=== PATIENT | female | born 1980 | race Two or more races ===

== ENCOUNTER 2021-02-06 16:19 | Outpatient (REF) | payer OTHER, SELFPAY ==
--- NOTE | ~2021-02-06 | XR_ITS ---
EXAMINATION: XR SHOULDER, RIGHT CLINICAL INFORMATION: Osteoarthritis. COMPARISON: None TECHNIQUE: AP external rotation, Grashey, scapular Y, and axillary views of the right shoulder. FINDINGS: No acute fracture or dislocation. No significant joint space narrowing or marginal osteophytes. No osseous erosion. Tiny lateral subacromial spur. XR/XR shoulder RT min 2V IMPRESSION: Tiny lateral subacromial spur.
[2021-02-06 17:04] LABS: MANUAL DIFF FLAG NO
[2021-02-06 17:09] LABS: Basophils Absolute Auto 0.1 X10*3/uL (0.0-0.2); Basophils Percent Auto 0.7 % (0-2); Eosinophils Absolute Auto 0.1 X10*3/uL (0.0-0.4); Eosinophils Percent Auto 1.6 % (0-4); Hematocrit 31.9 % (37-47); Hemoglobin 9.5 g/dl (12.0-16.0); Imm Gran Abs Auto 0.02 X10*3/uL (0.00-0.03); Imm Gran Pct Auto 0.3 % (0.0-0.4); Lymphocytes Absolute Auto 2.4 X10*3/uL (1.2-4.9); Mean Corpuscular HGB Conc 29.8 g/dl (31.0-35.0); Mean Corpuscular Volume 70.4 fL (80-98); Mean Platelet Volume 10.1 fL (9.4-12.3); Monocytes Absolute Auto 0.5 X10*3/uL (0.1-1.2); Monocytes Percent Auto 7.8 % (2-11); Neutrophils Absolute Auto 3.9 X10*3/uL (2.0-8.3); Neutrophils Percent Auto 55.6 % (45-73); Platelet Count 370 X10*3/uL (160-400); Red Blood Count 4.53 X10*6/uL (4.20-5.50); Red Cell Distribution Width 15.9 % (11.0-16.0)
[2021-02-06 17:30] LABS: Alanine Aminotransferase 30 U/L (0-31); Albumin Level 4.4 g/dL (3.5-5.0); Alkaline Phosphatase 83 U/L (39-117); Anion Gap 12 (12-20); Aspartate Amino Transferase 23 U/L (5-31); Bilirubin Total 0.2 mg/dL (0.0-1.0); Blood Urea Nitrogen 8 mg/dL (9-16); Calcium 9.1 mg/dL (8.4-10.2); Carbon Dioxide 25 mmol/L (22-29); Chloride 105 mmol/L (96-108); Estimated Glomerular Filt Rate > 60; Glucose Random 75 mg/dL (60-115); Sodium 138 mmol/L (135-145)
[2021-02-06 17:50] LABS: Free T4 (Free Thyroxine) 0.91 ng/dL (0.71-1.85); Thyroid Stimulating Hormone 3.68 uIU/mL (0.32-4.0)
[2021-02-07 09:07] LABS: Thyroid Peroxidase Antibodies >900 IU/mL (<9)
== END 2021-02-06 16:20 | disposition home or self-care (01) ==
LOC: HO.LAB 16:19
PROVIDERS: PCP Internal Medicine; Visit Provider Internal Medicine
DX: E06.9 Thyroiditis, unspecified (principal); R63.5 Abnormal weight gain; M25.511 Pain in right shoulder
CPT/HCPCS: 36415; 73030; 80053; 84439; 84443; 85025; 86376

== ENCOUNTER 2021-02-14 12:24 | Outpatient (REF) | payer OTHER, SELFPAY ==
--- NOTE | ~2021-02-14 | US_ITS ---
EXAMINATION: US THYROID CLINICAL INFORMATION: Thyroiditis, thyromegaly. COMPARISON: Ultrasound soft tissue head/neck thyroid dated 11/25/2018 TECHNIQUE: Linear transducer medellin-scale and color Doppler examination with attention to the region of the thyroid. FINDINGS: SIZE: Measurements of the thyroid lobes and nodules are given in sagittal, anteroposterior and transverse dimensions respectively. Right Thyroid Lobe: 6.89 x 2.48 x 2.02 cm, volume 18.0 mL. Previously 5.6 x 2.9 x 2.0 cm, volume 16.4 mL. Parenchyma: The gland echotexture is heterogeneous. Thyroid vascularity is increased. Left Thyroid Lobe: 4.45 x 1.25 x 1.34 cm, volume 3.89 mL. Previously 1.2 x 1.3 x 4.5 cm, volume 3.4 mL. Parenchyma: The gland echotexture is heterogeneous. Thyroid vascularity is increased. Isthmus: 1.1 cm in maximum AP dimension. Previously 1.2 cm. No focal thyroid nodule is seen. NODES: No lymphadenopathy is seen in the tissue surrounding the thyroid gland. There there is a 1.5 x 0.90 x 0.80 cm hypoechoic area adjacent to the right thyroid lobe and 0.80 x 0.56 x 0.55 cm heterogeneous lesion adjacent to the left thyroid lobe, question small parathyroid adenomas versus lymph nodes. US/US thyroid IMPRESSION: Heterogenous enlarged right thyroid lobe. The left thyroid lobe is heterogenous but normal size. Nodules adjacent to the right and left thyroid lobe are likely parathyroid lesions or small lymph nodes. ACR TI-RADS RECOMMENDATION REFERENCE: Ultrasound-guided fine-needle aspiration, followup ultrasound, no further followup. * TR1 (0 point) and TR 2 (2 points): No FNA or follow up. * TR3 (3 points): FNA if more than or equal to 2.5 cm in maximum dimension, followup ultrasound in 1, 3 and 5 years if 1.5 to 2.4 cm in maximum dimension. * TR4 (4-6 points): FNA if more than or equal to 1.5 cm in maximum dimension, followup ultrasound in 1, 2, 3 and 5 years if 1 to 1.4 cm in maximum dimension. * TR5 (more than or equal to 7 points): FNA if more than or equal to 1 cm in maximum dimension, followup ultrasound every year for 5 years if 0.5 to 0.9 cm in maximum dimension. * TR3, TR4 or TR5 nodules that are below the size threshold for followup receive no followup.
== END 2021-02-14 12:25 | disposition home or self-care (01) ==
LOC: HO.US 12:24
PROVIDERS: Visit Provider Internal Medicine
DX: E07.9 Disorder of thyroid, unspecified (principal)
CPT/HCPCS: 76536

== ENCOUNTER 2021-02-25 08:00 | Outpatient (REF) | payer OTHER, SELFPAY | END 2021-02-25 08:01 | disposition home or self-care (01) | LOC: HO.HOSX 08:00 | PROVIDERS: Visit Provider Physician Assistant | DX: M54.12 Radiculopathy, cervical region (principal) | CPT/HCPCS: 99202 ==

== ENCOUNTER 2021-03-20 15:07 | Outpatient (REF) | payer OTHER, SELFPAY ==
--- NOTE | ~2021-03-20 | XR_ITS ---
EXAMINATION: RIGHT SHOULDER, CERVICAL SPINE, AND LUMBAR SPINE. CLINICAL INFORMATION: Pain COMPARISON: 02/06/2021 TECHNIQUE: 4 view right shoulder, 3 view lumbar spine, and 4 view cervical spine. FINDINGS: Views of the right shoulder do not demonstrate any evidence of acute fracture or dislocation. No calcific tendinitis. No significant degenerative change of the acromioclavicular joint. Glenohumeral joint unremarkable. Small acromial spur is present. Views of the cervical spine do not demonstrate any evidence of abnormal prevertebral soft tissue swelling. Disc spaces are maintained with minimal narrowing of the C5-6 disc space. The bony texture and alignment of the lumbar spine is satisfactory. There are 5 nonrib bearing lumbar vertebra. No acute fracture, spondylolisthesis, spondylolysis is appreciated. Sacroiliac joints unremarkable. Pedicles intact. XR/XR lumbar spine 2-3V IMPRESSION: No significant bony abnormality of the right shoulder, cervical spine, or lumbar spine identified.
--- NOTE | ~2021-03-20 | XR_ITS ---
EXAMINATION: RIGHT SHOULDER, CERVICAL SPINE, AND LUMBAR SPINE. CLINICAL INFORMATION: Pain COMPARISON: 02/06/2021 TECHNIQUE: 4 view right shoulder, 3 view lumbar spine, and 4 view cervical spine. FINDINGS: Views of the right shoulder do not demonstrate any evidence of acute fracture or dislocation. No calcific tendinitis. No significant degenerative change of the acromioclavicular joint. Glenohumeral joint unremarkable. Small acromial spur is present. Views of the cervical spine do not demonstrate any evidence of abnormal prevertebral soft tissue swelling. Disc spaces are maintained with minimal narrowing of the C5-6 disc space. The bony texture and alignment of the lumbar spine is satisfactory. There are 5 nonrib bearing lumbar vertebra. No acute fracture, spondylolisthesis, spondylolysis is appreciated. Sacroiliac joints unremarkable. Pedicles intact. XR/XR shoulder RT min 2V IMPRESSION: No significant bony abnormality of the right shoulder, cervical spine, or lumbar spine identified.
--- NOTE | ~2021-03-20 | XR_ITS ---
EXAMINATION: RIGHT SHOULDER, CERVICAL SPINE, AND LUMBAR SPINE. CLINICAL INFORMATION: Pain COMPARISON: 02/06/2021 TECHNIQUE: 4 view right shoulder, 3 view lumbar spine, and 4 view cervical spine. FINDINGS: Views of the right shoulder do not demonstrate any evidence of acute fracture or dislocation. No calcific tendinitis. No significant degenerative change of the acromioclavicular joint. Glenohumeral joint unremarkable. Small acromial spur is present. Views of the cervical spine do not demonstrate any evidence of abnormal prevertebral soft tissue swelling. Disc spaces are maintained with minimal narrowing of the C5-6 disc space. The bony texture and alignment of the lumbar spine is satisfactory. There are 5 nonrib bearing lumbar vertebra. No acute fracture, spondylolisthesis, spondylolysis is appreciated. Sacroiliac joints unremarkable. Pedicles intact. XR/XR cervical spine 3V IMPRESSION: No significant bony abnormality of the right shoulder, cervical spine, or lumbar spine identified.
== END 2021-03-20 15:08 | disposition home or self-care (01) ==
LOC: HO.XRAY 15:07
PROVIDERS: Absent Provider Physician Assistant; PCP Internal Medicine; Visit Provider Nurse Practitioner Family
DX: M47.816 Spondylosis without myelopathy or radiculopathy, lumbar region (principal); M54.12 Radiculopathy, cervical region; M79.18 Myalgia, other site; M54.2 Cervicalgia; M25.511 Pain in right shoulder
CPT/HCPCS: 72040; 72100; 73030; 99202

== ENCOUNTER → 2021-04-26 12:22 | Outpatient (BNVA) | payer OTHER, SELFPAY | PROVIDERS: PCP Physician Assistant; Visit Provider Nurse Practitioner Gerontology | DX: E06.3 Autoimmune thyroiditis (principal); E55.9 Vitamin D deficiency, unspecified; E04.9 Nontoxic goiter, unspecified | CPT/HCPCS: 99212 ==

== ENCOUNTER → 2021-05-01 10:55 | Outpatient (BNVA) | payer OTHER, SELFPAY | PROVIDERS: PCP Physician Assistant; Visit Provider Nurse Practitioner Family ==

== ENCOUNTER 2021-05-08 13:30 | Outpatient (REF) | payer OTHER, SELFPAY ==
[2021-05-08 15:26] LABS: Albumin Level 4.2 g/dL (3.5-5.0); Calcium 9.1 mg/dL (8.4-10.2); Phosphorus 3.7 mg/dL (2.7-4.5)
[2021-05-08 15:37] LABS: Vitamin D 25-OH Total 17.4 ng/mL (>30)
[2021-05-08 15:41] LABS: Vitamin D 25-OH Total 16.8 ng/mL (>30)
[2021-05-09 15:36] LABS: Calcium (PTHI) 9.1 mg/dL (8.6-10.2); PTHI 54 pg/mL (14-64)
== END 2021-05-08 13:31 | disposition home or self-care (01) ==
LOC: HO.LAB 13:30
PROVIDERS: Nurse Practitioner Gerontology; PCP Internal Medicine; Visit Provider Internal Medicine
DX: E55.9 Vitamin D deficiency, unspecified (principal)
CPT/HCPCS: 36415; 82040; 82306; 82310; 82330; 83970; 84100

== ENCOUNTER 2021-05-21 15:11 | Outpatient (REF) | payer OTHER, SELFPAY | END 2021-05-21 15:12 | disposition home or self-care (01) | LOC: HO.MRI 15:11 | PROVIDERS: PCP Internal Medicine; Visit Provider Nurse Practitioner Family | DX: Z13.89 Encounter for screening for other disorder (principal) ==

== ENCOUNTER 2021-06-26 14:24 | Outpatient (REF) | payer OTHER, SELFPAY ==
--- NOTE | ~2021-06-26 | US_ITS ---
EXAMINATION: US SOFT TISSUE NECK CLINICAL INFORMATION: Nontoxic goiter COMPARISON: Previous thyroid ultrasound January 2021 TECHNIQUE: Ultrasound of the neck soft tissues is performed with high- frequency medellin-scale imaging and color Doppler. FINDINGS: RIGHT NECK SOFT TISSUES: Scattered architecturally normal nodes are present. 5 right cervical lymph nodes are seen. The nodes show normal fatty hilus, normal cortical thickness, and no calcification. There is question of mild cystic change of the largest level 4 lymph node. Lymph nodes are otherwise normal in architecture. No abnormal color flow. The largest nodes are as follows: Level 1B: 1.1 x 0.8 x 0.9 cm. Normal joe architecture. Level 4: 1.1 x 0.6 x 0.6 cm. question mild cystic change LEFT NECK SOFT TISSUES: Scattered architecturally normal nodes are present. 5 left cervical lymph nodes are seen. The nodes show normal fatty hilus, normal cortical thickness, and no cystic change or calcification. No abnormal color flow. The largest nodes are as follows: Level 2: 2.3 x 0.9 x 0.8 cm. Normal joe architecture. Level 3: 1.2 x 0.4 x 0.4 cm. Normal joe architecture. US/US soft tiss head and/or neck IMPRESSION: Bilateral cervical lymphadenopathy. There is question of mild cystic change of the right level 4 lymph node. Lymph nodes otherwise demonstrate normal architecture.
--- NOTE | ~2021-06-26 | MR_ITS ---
EXAMINATION: MR CERVICAL SPINE WITHOUT CONTRAST CLINICAL INFORMATION: Cervical radiculopathy. Right arm pain for one month. Bilateral arm pain and weakness. Finger numbness or weakness. COMPARISON: Cervical spine radiographs dated 03/20/2021. TECHNIQUE: MRI of the cervical spine was obtained using routine sequences without contrast. FINDINGS: VERTEBRAL BODIES AND PARASPINAL SOFT TISSUES: Straightening of the normal cervical lordosis, which may be positional or related to muscular spasm. No acute fracture or subluxation. No loss of vertebral body height. Loss of intervertebral disc height at C5-C6. No abnormal marrow signal to suggest acute osseous injury. No abnormal signal within the visualized cord. The paraspinal soft tissues are unremarkable. CERVICOMEDULLARY JUNCTION AND VISUALIZED POSTERIOR FOSSA: Unremarkable. SPINAL LEVELS: C2-C3: No significant disc bulge. No central canal or neural foraminal stenosis. C3-C4: No significant disc bulge. No central canal or neural foraminal stenosis. C4-C5: No significant disc bulge. Right-sided uncinate spurring with mild right neural foraminal stenosis. C5-C6: Broad-based disc osteophyte complex with a right posterior paracentral disc protrusion and annular fissuring. Complete effacement of the ventral thecal sac with indentation of the adjacent cord. Bilateral uncinate spurring and facet arthropathy with moderate right and mild left neural foraminal stenosis. C6-C7: No significant disc bulge. No central canal or neural foraminal stenosis. C7-T1: No significant disc bulge. No central canal or neural foraminal stenosis. MR/MR cervical spine wo con IMPRESSION: 1. Degenerative disease at C5-C6 with a broad-based disc osteophyte complex and superimposed right paracentral disc protrusion with annular fissuring. This completely effaces the ventral thecal sac and indents the adjacent cord. Bilateral uncinate spurring and facet arthropathy causing moderate right and mild left neural foraminal stenosis. 2. Right-sided uncinate spurring at C4-C5 with mild right neural foraminal stenosis. 3. Straightening of the normal cervical lordosis, which may be positional or related to muscular spasm.
== END 2021-06-26 14:25 | disposition home or self-care (01) ==
LOC: HO.US 14:24
PROVIDERS: PCP Internal Medicine; Visit Provider Nurse Practitioner Family
DX: M54.12 Radiculopathy, cervical region (principal); E04.9 Nontoxic goiter, unspecified; R59.1 Generalized enlarged lymph nodes
CPT/HCPCS: 72141; 76536

== ENCOUNTER 2021-10-31 13:47 | Outpatient (REF) | payer OTHER, SELFPAY ==
[2021-10-31 16:01] LABS: Free T4 (Free Thyroxine) 0.79 ng/dL (0.71-1.85); Thyroid Stimulating Hormone 2.95 uIU/mL (0.32-4.0)
[2021-11-02 07:06] LABS: Thyroglobulin Antibodies 1 IU/mL (< or = 1); Thyroid Peroxidase Antibodies >900 IU/mL (<9)
== END 2021-10-31 13:48 | disposition home or self-care (01) ==
LOC: HO.LAB 13:47
PROVIDERS: PCP Internal Medicine; Visit Provider Internal Medicine
DX: E06.3 Autoimmune thyroiditis (principal); E55.9 Vitamin D deficiency, unspecified; R59.0 Localized enlarged lymph nodes
CPT/HCPCS: 36415; 82306; 84439; 84443; 86376; 86800; 99212

== ENCOUNTER → 2022-01-16 08:40 | Outpatient (BNVA) | payer OTHER, SELFPAY | PROVIDERS: PCP Internal Medicine; Visit Provider Internal Medicine | DX: E06.3 Autoimmune thyroiditis (principal) ==

== ENCOUNTER 2022-10-14 15:56 | Outpatient (REF) | payer OTHER, SELFPAY ==
--- NOTE | ~2022-10-14 | XR_ITS ---
EXAMINATION: XR LUMBOSACRAL SPINE CLINICAL INFORMATION: Low back pain radiating to right leg COMPARISON: None TECHNIQUE: Three views of the lumbosacral spine. FINDINGS: The vertebral bodies and posterior elements are normal. The disc spaces are preserved and the vertebral alignment is normal. The paraspinal soft tissues are normal. XR/XR lumbar spine 2-3V IMPRESSION: Unremarkable lumbar spine exam..
[2022-10-14 16:15] LABS: MANUAL DIFF FLAG NO
[2022-10-14 16:24] LABS: Basophils Absolute Auto 0.1 X10*3/uL (0.0-0.2); Basophils Percent Auto 0.7 % (0-2); Eosinophils Absolute Auto 0.1 X10*3/uL (0.0-0.4); Eosinophils Percent Auto 1.6 % (0-4); Hemoglobin 11.4 g/dl (12.0-16.0); Imm Gran Abs Auto 0.04 X10*3/uL (0.00-0.03); Imm Gran Pct Auto 0.5 % (0.0-0.4); Lymphocytes Absolute Auto 1.9 X10*3/uL (1.2-4.9); Lymphocytes Percent Auto 23.2 % (20-40); Mean Corpuscular HGB Conc 30.8 g/dl (31.0-35.0); Mean Corpuscular Hemoglobin 22.1 pg (27.0-33.0); Mean Corpuscular Volume 71.6 fL (80.0-98.0); Mean Platelet Volume 10.7 fL (9.4-12.3); Monocytes Absolute Auto 0.5 X10*3/uL (0.1-1.2); Monocytes Percent Auto 6.2 % (2-11); Neutrophils Absolute Auto 5.6 x10*3/uL (2.0-8.3); Neutrophils Percent Auto 67.8 % (45-73); Platelet Count 360 X10*3/uL (160-400); Red Blood Count 5.17 X10*6/uL (4.20-5.50); Red Cell Distribution Width 15.2 % (11.0-16.0); White Blood Count 8.3 X10*3/uL (4.8-10.8)
[2022-10-14 17:06] LABS: Alanine Aminotransferase 12 U/L (0-31); Albumin Level 4.3 g/dL (3.5-5.0); Alkaline Phosphatase 103 U/L (39-117); Anion Gap 14 (12-20); Aspartate Amino Transferase 17 U/L (5-31); Bilirubin Total 0.4 mg/dL (0.0-1.0); Blood Urea Nitrogen 8 mg/dL (9-16); Calcium 9.3 mg/dL (8.4-10.2); Carbon Dioxide 23 mmol/L (22-29); Chloride 105 mmol/L (96-108); Cholesterol 250 mg/dL; Estimated Glomerular Filt Rate > 60; Glucose Random 91 mg/dL (60-115); Potassium 4.2 mmol/L (3.3-5.1); Sodium 138 mmol/L (135-145)
[2022-10-14 17:14] LABS: Free T4 (Free Thyroxine) 0.81 ng/dL (0.71-1.85); Thyroid Stimulating Hormone 4.28 uIU/mL (0.32-4.0); Vitamin D 25-OH Total 16.9 ng/mL (>30)
[2022-10-15 16:28] LABS: Triiodothyronine T3 Free 3.1 pg/mL (2.3-4.2)
[2022-10-15 17:08] LABS: Thyroid Peroxidase Antibodies >900 IU/mL (<9)
== END 2022-10-14 15:57 | disposition home or self-care (01) ==
LOC: HO.LAB 15:56
PROVIDERS: PCP Internal Medicine; Visit Provider Internal Medicine
DX: M54.50 Low back pain, unspecified (principal)
CPT/HCPCS: 36415; 72100; 80053; 82306; 82465; 84439; 84443; 84481; 85025; 86376

== ENCOUNTER 2022-11-03 15:19 | Outpatient (REF) | payer OTHER, SELFPAY ==
--- NOTE | ~2022-11-03 | US_ITS ---
EXAMINATION: US THYROID CLINICAL INFORMATION: Thyromegaly. Trent's thyroiditis. COMPARISON: Ultrasound soft tissue head/neck 06/26/2021. Thyroid ultrasound 02/14/2021 and 11/25/2018. TECHNIQUE: Linear transducer grayscale and color Doppler examination with attention to the region of the thyroid. FINDINGS: SIZE: Measurements of the thyroid lobes and nodules are given in sagittal, anteroposterior and transverse dimensions respectively. Right Thyroid Lobe: 5.9 x 2.4 x 2.8 cm, volume 20.8 mL. Previously 6.9 x 2.5 x 2.0 cm, volume 18 mL. Parenchyma: The gland echotexture is heterogeneous. Thyroid vascularity is increased. Left Thyroid Lobe: 4.8 x 1.6 x 1.5 cm, volume 6.0 mL. Previously 4.5 x 1.3 x 1.3 cm, volume 4.0 mL. Parenchyma: The gland echotexture is heterogeneous. Thyroid vascularity is increased. Isthmus: 1.3 cm in maximum AP dimension. Previously 1.1 cm. No focal thyroid nodule is seen. NODES: No lymphadenopathy is seen in the tissue surrounding the thyroid gland. Benign-appearing right neck lymph node measures 1.6 0.5-0.9 cm with normal morphology and benign-appearing fatty hilum. US/US thyroid IMPRESSION: Diffusely heterogeneous thyroid gland. No suspicious thyroid nodules ACR TI-RADS RECOMMENDATION REFERENCE: Ultrasound-guided fine-needle aspiration, followup ultrasound, no further follow up. * TR1 (0 point) and TR2 (2 points): No FNA or follow up * TR3 (3 points): FNA if more than or equal to 2.5 cm in maximum dimension, followup ultrasound in 1, 3 and 5 years if 1.5 to 2.4 cm in maximum dimension. * TR4 (4-6 points): FNA if more than or equal to 1.5 cm in maximum dimension, followup ultrasound in 1, 2, 3 and 5 years if 1 to 1.4 cm in maximum dimension. * TR5 (more than or equal to 7 points): FNA if more than or equal to 1 cm in maximum dimension, followup ultrasound every year for 5 years if 0.5 to 0.9 cm in maximum dimension. * TR3, TR4 or TR5 nodules that are below the size threshold for follow up receive no follow up.
== END 2022-11-03 15:20 | disposition home or self-care (01) ==
LOC: HO.US 15:19
PROVIDERS: Visit Provider Internal Medicine
DX: E01.0 Iodine-deficiency related diffuse (endemic) goiter (principal)
CPT/HCPCS: 76536

== ENCOUNTER 2022-12-19 15:40 | Outpatient (REF) | payer OTHER, SELFPAY ==
[2022-12-19 18:37] LABS: Free T4 (Free Thyroxine) 0.97 ng/dL (0.71-1.85); Thyroid Stimulating Hormone 3.02 uIU/mL (0.32-4.0); Vitamin D 25-OH Total 41.2 ng/mL (>30)
== END 2022-12-19 15:41 | disposition home or self-care (01) ==
LOC: HO.LAB 15:40
PROVIDERS: PCP Internal Medicine; Visit Provider Internal Medicine
DX: E06.3 Autoimmune thyroiditis (principal); E55.9 Vitamin D deficiency, unspecified
CPT/HCPCS: 36415; 82306; 84439; 84443

== ENCOUNTER → 2022-12-24 10:26 | Outpatient (BNVA) | payer OTHER, SELFPAY | PROVIDERS: PCP Internal Medicine; Visit Provider Internal Medicine | DX: E06.3 Autoimmune thyroiditis (principal); E55.9 Vitamin D deficiency, unspecified; R59.0 Localized enlarged lymph nodes | CPT/HCPCS: 99212 ==

== ENCOUNTER 2023-06-24 09:54 | Outpatient (REF) | payer OTHER, SELFPAY ==
[2023-06-24 10:21] LABS: MANUAL DIFF FLAG NO
[2023-06-24 10:26] LABS: Basophils Absolute Auto 0.1 X10*3/uL (0.0-0.2); Basophils Percent Auto 0.8 % (0-2); Eosinophils Absolute Auto 0.1 X10*3/uL (0.0-0.4); Eosinophils Percent Auto 1.7 % (0-4); Hematocrit 35.8 % (37.0-47.0); Imm Gran Abs Auto 0.03 X10*3/uL (0.00-0.03); Imm Gran Pct Auto 0.5 % (0.0-0.4); Lymphocytes Absolute Auto 1.7 X10*3/uL (1.2-4.9); Lymphocytes Percent Auto 26.3 % (20-40); Mean Corpuscular HGB Conc 30.7 g/dl (31.0-35.0); Mean Corpuscular Hemoglobin 22.6 pg (27.0-33.0); Mean Corpuscular Volume 73.5 fL (80.0-98.0); Monocytes Absolute Auto 0.6 X10*3/uL (0.1-1.2); Monocytes Percent Auto 8.5 % (2-11); Neutrophils Absolute Auto 4.1 x10*3/uL (2.0-8.3); Neutrophils Percent Auto 62.2 % (45-73); Platelet Count 302 X10*3/uL (160-400); Red Blood Count 4.87 X10*6/uL (4.20-5.50); Red Cell Distribution Width 13.9 % (11.0-16.0); White Blood Count 6.5 X10*3/uL (4.8-10.8)
[2023-06-24 11:03] LABS: Alanine Aminotransferase 14 U/L (0-31); Albumin Level 4.1 g/dL (3.5-5.0); Alkaline Phosphatase 82 U/L (39-117); Anion Gap 11 (12-20); Aspartate Amino Transferase 18 U/L (5-31); Bilirubin Total 0.3 mg/dL (0.0-1.0); Blood Urea Nitrogen 9 mg/dL (9-16); Calcium 7.7 mg/dL (8.4-10.2); Carbon Dioxide 26 mmol/L (22-29); Chloride 106 mmol/L (96-108); Estimated Glomerular Filt Rate > 60; Glucose Random 99 mg/dL (60-115); Potassium 3.8 mmol/L (3.3-5.1); Sodium 139 mmol/L (135-145); Total Protein 7.7 g/dL (6.5-8.0)
[2023-06-24 11:24] LABS: Thyroid Stimulating Hormone 3.36 uIU/mL (0.32-4.0)
== END 2023-06-24 09:55 | disposition home or self-care (01) ==
LOC: HO.10HDL 09:54
PROVIDERS: Visit Provider Internal Medicine
DX: E01.0 Iodine-deficiency related diffuse (endemic) goiter (principal); E55.9 Vitamin D deficiency, unspecified; R10.9 Unspecified abdominal pain
CPT/HCPCS: 36415; 80053; 82306; 82550; 84439; 84443; 85025; 86140

== ENCOUNTER 2023-07-30 09:29 | Outpatient (REF) | payer OTHER, SELFPAY ==
--- NOTE | ~2023-07-30 | US_ITS ---
EXAMINATION: US THYROID CLINICAL INFORMATION: [id number] multinodular goiter. COMPARISON: Ultrasound soft tissue head/neck thyroid dated 11/05/2012 TECHNIQUE: Linear transducer grayscale and color Doppler examination with attention to the region of the thyroid. FINDINGS: SIZE: Measurements of the thyroid lobes and nodules are given in sagittal, anteroposterior and transverse dimensions respectively. Right Thyroid Lobe: 6.0 x 2.4 x 2.8 cm, volume 19.8 mL. Previously 5.9 x 2.4 x 2.8 cm, volume 20.8 mL. Parenchyma: The gland echotexture is heterogeneous. Thyroid vascularity is increased. Left Thyroid Lobe: 4.5 x 1.3 x 1.4 cm, volume 4.1 mL. Previously 4.8 x 1.6 x 1.5 cm, volume 6.0 mL. Parenchyma: The gland echotexture is heterogeneous. Thyroid vascularity is increased. Isthmus: 1.3 cm in maximum AP dimension. Previously 1.3 cm. No focal thyroid nodule is seen. NODES: No lymphadenopathy is seen in the tissue surrounding the thyroid gland. US/US thyroid IMPRESSION: Heterogeneous hypervascular enlarged thyroid which can be seen in the setting of thyroiditis.. ACR TI-RADS RECOMMENDATION REFERENCE: Ultrasound-guided fine-needle aspiration, follow up ultrasound, no further followup. * TR1 (0 point) and TR2 (2 points): No FNA or followup * TR3 (3 points): FNA if more than or equal to 2.5 cm in maximum dimension, follow up ultrasound in 1, 3 and 5 years if 1.5 to 2.4 cm in maximum dimension. * TR4 (4-6 points): FNA if more than or equal to 1.5 cm in maximum dimension, follow up ultrasound in 1, 2, 3 and 5 years if 1 to 1.4 cm in maximum dimension. * TR5 (more than or equal to 7 points): FNA if more than or equal to 1 cm in maximum dimension, follow up ultrasound every year for 5 years if 0.5 to 0.9 cm in maximum dimension. * TR3, TR4 or TR5 nodules that are below the size threshold for follow up receive no followup.
== END 2023-07-30 09:30 | disposition home or self-care (01) ==
LOC: HO.US 09:29
PROVIDERS: PCP Internal Medicine; Visit Provider Internal Medicine
DX: E01.1 Iodine-deficiency related multinodular (endemic) goiter (principal)
CPT/HCPCS: 76536

== ENCOUNTER 2023-08-05 09:39 | Outpatient (REF) | payer OTHER, SELFPAY ==
--- NOTE | ~2023-08-05 | CT_ITS ---
EXAMINATION: CT ABDOMEN AND PELVIS WITHOUT CONTRAST CLINICAL INFORMATION: Left abdominal pain COMPARISON: None available. TECHNIQUE: Multidetector volumetric imaging was performed from the superior aspect of the liver through the pubic symphysis. Sagittal and coronal reformatted images were obtained on the technologist's workstation. This CT examination was performed using dose optimization techniques as appropriate, variously including the following: *Automated exposure control *Adjustment of mA and/or kV according to patient size (this includes techniques or standardized protocols for targeted exams where dose is matched to indication/reason for exam; i.e. extremities or head) *Use of iterative reconstruction technique DLP: 569 mGy-cm FINDINGS: LUNG BASES: The visualized lung bases are unremarkable. LIVER, GALLBLADDER, AND BILIARY TREE: The liver is normal in size, shape, and attenuation. No focal hepatic lesion or biliary ductal dilatation is present. The gallbladder is unremarkable with no evidence of radiopaque gallstones, gallbladder wall thickening, or obvious pericholecystic inflammatory changes. PANCREAS: No discrete mass. No ductal dilatation. SPLEEN: Normal; no mass. ADRENAL GLANDS: Normal; no mass. KIDNEYS AND URETERS: Duplicated left renal collecting system. No hydroureteronephrosis on either side. No nephrolithiasis. BLADDER: Unremarkable. GASTROINTESTINAL TRACT: The small bowel is normal in caliber. The appendix is not seen but no pericecal inflammatory changes. The large bowel is normal in caliber. No inflammatory changes in the left abdomen to correlate with the clinical history. ABDOMINAL WALL: No significant hernia is appreciated. LYMPH NODES: No lymphadenopathy. VASCULAR: No aortic aneurysm. PELVIC VISCERA: Unremarkable. OSSEOUS STRUCTURES: Mild degenerative disc disease at L4-L5. CT/CT abdomen pelvis wo IV con IMPRESSION: No acute inflammatory changes in the abdomen or pelvis to correlate with left-sided abdominal pain. Duplicated left renal collecting system without nephrolithiasis or hydroureteronephrosis. Fleischner guidelines were followed.
== END 2023-08-05 09:40 | disposition home or self-care (01) ==
LOC: HO.CT 09:39
PROVIDERS: PCP Internal Medicine; Visit Provider Internal Medicine
DX: R10.12 Left upper quadrant pain (principal)
CPT/HCPCS: 74176

== ENCOUNTER 2023-11-01 14:31 | Emergency (ER) | payer OTHER, SELFPAY ==
[2023-11-01 14:35] VITALS: BP 134/86; PULSE 84; RESP 18; TEMP 36.2; O2SAT 98; BMI 33.8
--- NOTE | 2023-11-01 14:40 | ED.GENADULT ---
HPI - General Adult General Chief complaint: Allergic Reaction Stated complaint: Allergic reaction Time Seen by Provider: 11/01/23 14:38 Source: patient Mode of arrival: ambulatory Limitations: no limitations History of Present Illness HPI narrative: 43-year-old female presents to ED for itchy rash since Thursday. Patient only known allergies is selfish and denies eating selfish. Patient states no new detergents, clothes, cosmetics, or new foods. Patient denies any swelling of the lips, tongue swelling, or sensation of throat closing. Patient denies any fever or chills. Patient denies any new antibiotics. Patient denies any peeling skin. Related Data Previous Rx's Medication Instructions Recorded tizanidine 2 mg tablet 2 mg PO BEDTIME PRN muscle 03/20/21 spasticity #30 tabs lorazepam 1 mg tablet 1 mg PO ONCE PRN anxiety #2 tabs 06/19/21 cholecalciferol (vitamin D3) 50 50 mcg PO DAILY 30 days #30 caps 10/31/21 mcg (2,000 unit) capsule diphenhydramine HCl 25 mg capsule 25 mg PO TID PRN allergic reaction 11/01/23 (Benadryl) 7 days #21 caps famotidine 20 mg tablet (Pepcid) 20 mg PO BID 7 days #14 tabs 11/01/23 prednisone 20 mg tablet 40 mg (2 x 20 mg) PO DAILY 5 days 11/01/23 #10 tabs Allergies Allergy/AdvReac Type Severity Reaction Status Date / Time shellfish derived Allergy Unknown UNKNOWN Verified 11/01/23 14:35 [SHELLFISH DERIVED] Review of Systems Review of Systems: Itchy rash Yes all other systems are reviewed and are negative PMFSH Past Medical History Medical History Cervical lymphadenopathy Trent's disease Obesity due to excess calories Vitamin D deficiency Surgical History Hx of appendectomy Hx of section Family History Family History Mother Hypertension Diabetes High cholesterol CVA (cerebral vascular accident) Thyroid disease Father Pneumonia Social History Social History Alcohol intake: never Patient Tobacco Use Status: Never used Tobacco Advance Directives: No Advance Directives Information Provided: Yes Physical Exam ED Vital Signs: Vital Signs - 24 hr 11/01/23 14:35 Temperature 97.1 F Pulse Rate 84 Respiratory Rate 18 Blood Pressure 134/86 Pulse Oximetry 98 Oxygen Delivery Method Room Air BMI result Body Mass Index 33.8 Const General: cooperative, healthy appearing, comfortable, no acute distress, well developed, alert, awake and Physically active Orientation/consciousness: oriented to person, oriented to place, oriented to time and patient oriented x3 HENMT Other: NEgative for lip swelling, tongue swelling, or uvula swelling. Head: Yes normal to inspection, Yes No palpable skull fracture present, Yes normocephalic and Yes atraumatic Eyes General: appearance normal, both eyes and all related structures Neck Neck: Yes normal visual inspection, Yes full ROM, Yes no lymphadenopathy, Yes no meningeal signs, Yes trachea midline, Yes supple, No anterior neck swelling and No tender Chest Other: hives Chest palpation & inspection: normal inspection of the chest and normal palpation of entire chest wall Resp Effort & Inspection: normal respiratory effort and able to speak in complete sentences Auscultation: clear to auscultation bilaterally Cardio Jugular venous distension: no JVD Heart sounds: S1 normal heart sound present and S2 normal heart sound present GI Other: hives Inspection: Yes normal to inspection Palpation (GI): Soft to palpation, not firm, nontender, no guarding and not rigid General: No CVA tenderness and Yes no CVA tenderness Back/Spine/Pelvis Back: no CVA tenderness, No CVA tenderness and No back tenderness Skin Other: Hives on chest, abdomen, and extremities. Neuro General: oriented to person, oriented to place, oriented to time, patient oriented x3, gait normal, tone normal, moves all extremities, Normal light touch and pain sensation, no meningeal signs, no focal motor deficits, CN's II-XI intact bilaterally and normal sensation to monofilament Extrem General: Yes normal to inspection, Yes full ROM and Yes capillary refill normal Psych Appearance: grossly normal, well kempt and not disheveled Course Course Course Narrative: RME: 43 yold female presents to the ED for allergic reaction since yesterday after noon. patient denies any new foods, cosmetics, detergents, or clothes. took benadryl once yesterday. COmplinnig of tichiness and rash since yesterday. no lip swelling or sensation of throat clsoing. Medications Administered Discontinued Medications Generic Name Dose Route Start Last Admin Trade Name Freq PRN Reason Stop Dose Admin Diphenhydramine HCl 50 mg 11/01/23 14:38 11/01/23 15:09 Diphenhydramine Hcl 25 Mg Capsule PO 11/01/23 14:39 50 mg ONCE ONE Administration Famotidine 20 mg 11/01/23 14:38 11/01/23 15:09 Famotidine 20 Mg Tablet PO 11/01/23 14:39 20 mg ONCE ONE Administration Prednisone 60 mg 11/01/23 14:38 11/01/23 15:09 Prednisone 20 Mg Tablet PO 11/01/23 14:39 60 mg ONCE ONE Administration Medical Decision Making Medical Decision Making MDM Narrative: 43-year-old female presents to ED for allergic reaction since Thursday. Patient states itchy rash and itchiness. Patient denies any anaphylactic syndrome. Patient given benadryl, prednisone, and pepcid. negative for signs of anypylaxis. Not suspecting jose ramon johson, cellulitis, necrotizing fascitis, viral rash, or anyphylaxis Differential Diagnosis Differential Diagnoses: The differential diagnosis associated with the presentation includes (Allergic reaction, dermatitis,) Admission/Observation Consideration of admission/observation: Escalation of care including admission/observation considered Independent Historian Clinical information obtained from an independent historian. History obtained from or confirmed by: Other (Patient) External Record Review External record reviewed: Other (Prior visit) Prescription Management I considered prescription management with: Other (Benadryl prednisone Pepcid) Discharge Plan Discharge Clinical Impression: Allergic reaction Patient Disposition: Home, Self-Care Instructions: General Allergic Reaction (ED) Additional Instructions: Recommend follow up with PCP for patch test. Return to the ED immediately for any swelling of the lips, tongue sweling, sensation of throat closing, shortness of breath, worsening rash, fever, chills, peeling skin, or any other concerning symptosms Prescriptions: New diphenhydramine HCl [Benadryl] 25 mg capsule 25 mg PO TID PRN (Reason: allergic reaction) 7 Days Qty: 21 0RF prednisone 20 mg tablet 40 mg PO DAILY 5 Days Qty: 10 0RF famotidine [Pepcid] 20 mg tablet 20 mg PO BID 7 Days Qty: 14 0RF No Action lorazepam 1 mg tablet 1 mg PO ONCE PRN (Reason: anxiety) Qty: 2 0RF Rx Instructions: take 1 tablet an hour prior to MRI. Be sure to have some one drive you to and from and the medication can be sedating. cholecalciferol (vitamin D3) 50 mcg (2,000 unit) capsule 50 mcg PO DAILY 30 Days Qty: 30 11RF tizanidine 2 mg tablet 2 mg PO BEDTIME PRN (Reason: muscle spasticity) Qty: 30 0RF Rx Instructions: start with 1/2 tab as medication can be sedating Stand Alone Forms: Work/School Release Interventions: ED Discharge Assessment Last Done: 11/01/23 16:01 Discharge Date/Time: 11/01/23 16:02 Print Language: Amharic
[2023-11-01] MEDS: diphenhydrAMINE HCL 25 MG CAPSULE 50 MG PO (15:09)
[2023-11-01] MEDS: predniSONE 20 MG TABLET 60 MG PO (15:09)
[2023-11-01] MEDS: Famotidine 20 MG TABLET PO (15:09)
== END 2023-11-01 16:02 | disposition home or self-care (01) ==
PROVIDERS: Emergency Provider Emergency Medicine Emergency Medical Services; PCP Internal Medicine
DX: L50.0 Allergic urticaria (principal); Z79.899 Other long term (current) drug therapy
CPT/HCPCS: 99282; 99283

== ENCOUNTER 2024-01-11 09:13 | Emergency (ER) | payer OTHER, SELFPAY ==
--- NOTE | ~2024-01-11 | CT_ITS ---
EXAMINATION: CT ABDOMEN AND PELVIS WITHOUT CONTRAST CLINICAL INFORMATION: Left-sided flank pain COMPARISON: CT abdomen pelvis 08/05/2023 TECHNIQUE: Multidetector volumetric imaging was performed from the superior aspect of the liver through the pubic symphysis. Sagittal and coronal reformatted images were obtained on the technologist's workstation. This CT examination was performed using dose optimization techniques as appropriate, variously including the following: *Automated exposure control *Adjustment of mA and/or kV according to patient size (this includes techniques or standardized protocols for targeted exams where dose is matched to indication/reason for exam; i.e. extremities or head) *Use of iterative reconstruction technique DLP: 683 mGy-cm FINDINGS: LUNG BASES: The visualized lung bases are unremarkable. LIVER, GALLBLADDER, AND BILIARY TREE: The liver is normal in size, shape, and attenuation. No focal hepatic lesion or biliary ductal dilatation is present. The gallbladder is unremarkable with no evidence of radiopaque gallstones, gallbladder wall thickening, or obvious pericholecystic inflammatory changes. PANCREAS: Unremarkable. SPLEEN: Unremarkable. ADRENAL GLANDS: Unremarkable. KIDNEYS AND URETERS: The kidneys are normal in size, shape, and attenuation. A partial duplex collecting system on the left is again noted. No hydronephrosis, hydroureter, or calculi seen. No perinephric stranding. BLADDER: Unremarkable. GASTROINTESTINAL TRACT: The small and large bowel are unremarkable. The appendix is unremarkable. ABDOMINAL WALL: No significant hernia is appreciated. LYMPH NODES: Normal. VASCULAR: Unremarkable. PELVIC VISCERA: The anteverted retroflexed uterus and adnexa are unremarkable. OSSEOUS STRUCTURES: Unremarkable. CT/CT abdomen pelvis wo IV con IMPRESSION: A cause for the patient's left-sided flank pain has not been found. Fleischner guidelines were followed.
[2024-01-11 09:38] VITALS: BP 159/92; PULSE 80; RESP 16; TEMP 36.8; O2SAT 98; BMI 40.3
[2024-01-11 10:56] LABS: MANUAL DIFF FLAG NO
[2024-01-11 10:58] LABS: Basophils Absolute Auto 0.1 X10*3/uL (0.0-0.2); Basophils Percent Auto 0.6 % (0-2); Eosinophils Absolute Auto 0.1 X10*3/uL (0.0-0.4); Eosinophils Percent Auto 1.1 % (0-4); Hematocrit 36.1 % (37.0-47.0); Hemoglobin 11.2 g/dl (12.0-16.0); Imm Gran Abs Auto 0.03 X10*3/uL (0.00-0.03); Imm Gran Pct Auto 0.4 % (0.0-0.4); Lymphocytes Absolute Auto 1.8 X10*3/uL (1.2-4.9); Lymphocytes Percent Auto 22.2 % (20-40); Mean Corpuscular Hemoglobin 22.9 pg (27.0-33.0); Mean Corpuscular Volume 73.8 fL (80.0-98.0); Mean Platelet Volume 10.3 fL (9.4-12.3); Monocytes Absolute Auto 0.5 X10*3/uL (0.1-1.2); Monocytes Percent Auto 5.8 % (2-11); Neutrophils Absolute Auto 5.7 x10*3/uL (2.0-8.3); Neutrophils Percent Auto 69.9 % (45-73); Platelet Count 317 X10*3/uL (160-400); Red Blood Count 4.89 X10*6/uL (4.20-5.50); Red Cell Distribution Width 14.6 % (11.0-16.0); White Blood Count 8.2 X10*3/uL (4.8-10.8)
[2024-01-11 11:00] LABS: UPreg QC Valid YES; Urine Pregnancy NEGATIVE (NEGATIVE)
[2024-01-11 11:03] LABS: Appearance Urine Clear; Color Urine Yellow; Glucose Urine UA Negative (Negative); Leukocyte Esterase Urine Negative (Negative); Nitrite Urine Negative (Negative); Specific Gravity - Urine >= 1.030 (1.005-1.025); Urine Blood Negative (Negative); Urine Ketones Negative (Negative); Urine Protein Negative (Neg-Trace)
[2024-01-11 11:12] LABS: Alanine Aminotransferase 19 U/L (0-31); Albumin Level 4.1 g/dL (3.5-5.0); Alkaline Phosphatase 86 U/L (39-117); Anion Gap 11 (12-20); Aspartate Amino Transferase 21 U/L (5-31); Bilirubin Total 0.4 mg/dL (0.0-1.0); Blood Urea Nitrogen 11 mg/dL (9-16); Carbon Dioxide 25 mmol/L (22-29); Chloride 106 mmol/L (96-108); Creatinine Clr Calc Pharmacy 119.2; Estimated Glomerular Filt Rate > 60; Glucose Random 98 mg/dL (60-115); Potassium 3.6 mmol/L (3.3-5.1); Sodium 138 mmol/L (135-145); Total Protein 7.9 g/dL (6.5-8.0)
--- NOTE | 2024-01-11 14:31 | ED_ITS ---
HPI - Abdominal Pain General Chief Complaint: Abdominal Pain Stated Complaint: abd pain, lower back pain Time Seen by Provider: 01/11/24 14:27 Source: patient Mode of arrival: ambulatory Limitations: no limitations History of Present Illness HPI narrative: 43 yo female with history of obesity, Trent's disease, cervical lymphadenopathy who presents to the ER for evaluation of 06/30 left sided flank pain that started yesterday when she was laying down. Pain radiates to her LUQ. It is worse with movement of any kind. No associated N/V/D or urinary symptoms. No fever or chills. MD elicited complaint: abdominal pain Pertinent past history: none Onset (ago): day(s) (1) Pain Consistency: constant Location: L flank Severity: severe Pain scale (0-10): 10 Quality: stabbing and sharp Radiation: LUQ Exacerbating factors: movement Relieving factors: nothing Related Data Previous Rx's ?Medication ?Instructions ?Recorded tizanidine 2 mg tablet 2 mg PO BEDTIME PRN muscle 03/20/21 spasticity #30 tabs lorazepam 1 mg tablet 1 mg PO ONCE PRN anxiety #2 tabs 06/19/21 cholecalciferol (vitamin D3) 50 50 mcg PO DAILY 30 days #30 caps 10/31/21 mcg (2,000 unit) capsule diphenhydramine HCl 25 mg capsule 25 mg PO TID PRN allergic reaction 11/01/23 (Benadryl) 7 days #21 caps famotidine 20 mg tablet (Pepcid) 20 mg PO BID 7 days #14 tabs 11/01/23 prednisone 20 mg tablet 40 mg (2 x 20 mg) PO DAILY 5 days 11/01/23 #10 tabs cyclobenzaprine 5 mg tablet 5 mg PO TID PRN muscle spasm #10 01/11/24 tabs lidocaine 5 % topical patch 1 patch topical DAILY #15 ea 01/11/24 Allergies Allergy/AdvReac Type Severity Reaction Status Date / Time shellfish derived Allergy Unknown UNKNOWN Verified 01/11/24 09:40 [SHELLFISH DERIVED] Review of Systems Review of Systems Yes all other systems are reviewed and are negative PMFSH Past Medical History Medical History Cervical lymphadenopathy Trent's disease Obesity due to excess calories Vitamin D deficiency Surgical History Hx of appendectomy Hx of section Family History Family History Mother Hypertension Diabetes High cholesterol CVA (cerebral vascular accident) Thyroid disease Father Pneumonia Social History Social History Alcohol intake: never Patient Tobacco Use Status: Never used Tobacco Advance Directives: No Advance Directives Information Provided: Yes Physical Exam ED Vital Signs: Vital Signs - 24 hr 01/11/24 09:38 01/11/24 14:53 01/11/24 16:57 Temperature 98.3 F 98.2 F 97.9 F Pulse Rate 80 65 61 Respiratory Rate 16 16 16 Blood Pressure 159/92 H 120/67 109/80 Pulse Oximetry 98 99 98 Oxygen Delivery Method Room Air Room Air Room Air BMI result Body Mass Index 40.3 Appearance: Alert. Oriented X3. No acute distress. Head: normocephalic, atraumatic. Eyes: Pupils equal, round and reactive to light. ENT: Pharynx normal. No tonsillar swelling or exudate. Neck: Normal inspection. Neck supple. CVS: Normal heart rate and rhythm. Pulses normal. Respiratory: No respiratory distress. Breath sounds normal. Abdomen: Soft with LUQ tenderness w/ guarding, normal active +BS x4. +CVA tenderness on the left Skin: Skin warm and dry. Normal skin color. Normal skin turgor. No rashes. Extremities: No lower extremity edema. No joint swelling. Neuro/psych: Oriented X 3. No motor deficit. No sensory deficit. CN II-XII intact. Normal speech and cognition. Course Reevaluation(s) Reevaluation #1: s/p morphine, patient still reporting severe pain IV toradol ordered signed out to Amelie HILLS, pending CT read Time: 15:50 Reevaluation #2: Received patient in sign out from DAYANARA Darnell pending CT results. CT shows no evidence of renal or ureteral calculi, hydronephrosis or stranding, no other cause for patient's symptoms. Upon examination patient is tender to palpation over left lateral ribs and left mid thoracic area, pain also increases with movement. She denies recent falls or other trauma. Denies recent strenuous activities. Feel symptoms are likely musculoskeletal as they are reproducible. Will reassess pain level after ketorolac. Patient drove self to the ED but states son can pick her up if necessary. Time: 17:08 Reevaluation #3: Patient agreeable to discharge home with prescriptions for Flexeril and lidocaine patches, will alternate Tylenol and ibuprofen. Instructed patient to follow-up with PCP for outpatient physical therapy. Return precautions discussed at bedside. Patient verbalized understanding of and agreement with plan. Time: 19:05 Medical Decision Making Medical Decision Making MDM Narrative: 43 yo female presenting with 10/10 flank pain that started yesterday. +CVA and LUQ tenderness on exam. Ambulating with very slow gait. Lab workup is unremarkable. UA without blood or infection. negative. 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 Given reporting of severe pain, IV morphine given. CT scan of the abd/pelvis ordered Differential Diagnosis Differential Diagnoses: The differential diagnosis associated with the presentation includes renal colic, pyelonephritis, kidney stone, splenic injury, muscular pain Admission/Observation Consideration of admission/observation: Escalation of care including admission/observation considered Lab Data [facility] Lab Attestation statement: I reviewed the patient's lab results. stable microcytic anemia, normal renal function 01/11/24 10:47 01/11/24 10:47 Labs: Lab Results 01/11/24 01/11/24 Range/Units 10:47 10:54 WBC 8.2 (4.8-10.8) X10*3/uL RBC 4.89 (4.20-5.50) X10*6/uL Hgb 11.2 L (12.0-16.0) g/dl Hct 36.1 L (37.0-47.0) % MCV 73.8 L (80.0-98.0) fL MCH 22.9 L (27.0-33.0) pg MCHC 31.0 (31.0-35.0) g/dl RDW 14.6 (11.0-16.0) % Plt Count 317 (160-400) X10*3/uL MPV 10.3 (9.4-12.3) fL Immature Gran % (Auto) 0.4 (0.0-0.4) % Neut % (Auto) 69.9 (45-73) % Lymph % (Auto) 22.2 (20-40) % Hernando % (Auto) 5.8 (2-11) % Eos % (Auto) 1.1 (0-4) % Baso % (Auto) 0.6 (0-2) % Lymph # (Auto) 1.8 (1.2-4.9) X10*3/uL Hernando # (Auto) 0.5 (0.1-1.2) X10*3/uL Eos # (Auto) 0.1 (0.0-0.4) X10*3/uL Baso # (Auto) 0.1 (0.0-0.2) X10*3/uL Abs Immat Gran (auto) 0.03 (0.00-0.03) X10*3/uL Absolute Neuts (auto) 5.7 (2.0-8.3) x10*3/uL Absolute Nucleated RBC 0.000 (0.0-0.012) X10*3/uL Nucleated RBC % (auto) 0.0 (0.0-0.2) /100WBC Sodium 138 (135-145) mmol/L Potassium 3.6 (3.3-5.1) mmol/L Chloride 106 (96-108) mmol/L Carbon Dioxide 25 (22-29) mmol/L Anion Gap 11 L (12-20) BUN 11 (9-16) mg/dL Creatinine 0.74 (0.5-1.4) mg/dL Estim Creat Clear Calc 119.2 Estimated GFR > 60 Random Glucose 98 (60-115) mg/dL Calcium 9.0 D (8.4-10.2) mg/dL Total Bilirubin 0.4 (0.0-1.0) mg/dL AST 21 (5-31) U/L ALT 19 (0-31) U/L Alkaline Phosphatase 86 (39-117) U/L Total Protein 7.9 (6.5-8.0) g/dL Albumin 4.1 (3.5-5.0) g/dL Urine Color Yellow Urine Appearance Clear Urine pH 6.0 (5.0-9.0) Ur Specific [place] >= 1.030 H (1.005-1.025) Urine Protein Negative (Neg-Trace) mg/dL Urine Glucose (UA) Negative (Negative) mg/dL Urine Ketones Negative (Negative) mg/dL Urine Blood Negative (Negative) Urine Nitrite Negative (Negative) Ur Leukocyte Esterase Negative (Negative) Urine Test NEGATIVE (NEGATIVE) External Record Review External record reviewed: Outpatient record, Prior outpatient labs and Prior outpatient radiology Prescription Management I considered prescription management with: Pain Medication and Antibiotic Medications Administered Discontinued Medications Generic Name Dose Route Start Last Admin Trade Name Freuriah PRN Reason Stop Dose Admin Cyclobenzaprine HCl 10 mg 01/11/24 17:22 01/11/24 17:47 Cyclobenzaprine Hcl 10 Mg Tablet PO 01/11/24 17:23 10 mg ONCE ONE Administration Ketorolac Tromethamine 15 mg 01/11/24 15:50 01/11/24 16:57 Ketorolac Tromethamine 15 Mg/Ml Vial IVPUSH 01/11/24 15:51 15 mg ONCE ONE Administration Lidocaine 1 patch 01/11/24 17:22 01/11/24 17:47 Lidocaine 4 % Patch Adh..Patch TRANSDERMA 01/11/24 17:23 1 patch ONCE ONE Administration Protocol Morphine Sulfate 4 mg 01/11/24 14:45 01/11/24 14:49 Morphine Sulfate 4 Mg/Ml Cartridge IVPUSH 01/11/24 14:46 4 mg ONCE ONE Administration Protocol Ondansetron HCl 4 mg 01/11/24 14:45 01/11/24 14:49 Ondansetron Hcl 4 Mg/2 Ml Vial IVPUSH 01/11/24 14:46 4 mg ONCE ONE Administration Discharge Plan Discharge Clinical Impression: Strain of mid-back, Left flank pain Patient Disposition: Home, Self-Care Instructions: Muscle Strain (DC), Thoracic Back Strain (ED) Additional Instructions: You were evaluated in the emergency department today for back/flank pain. Your evaluation did not show signs of medical conditions requiring emergent intervention at this time. We recommended that you use ibuprofen or Tylenol per package directions every 6 hours as needed for pain. If necessary, you can alternate these medications so that you take one medication every 3 hours. For instance, at noon take ibuprofen, then at 3:00 p.m. take Tylenol, then at 6:00 p.m. take ibuprofen. You have been prescribed a muscle relaxer which you may take every 8 hours as needed for spasms. You have been prescribed 5% topical lidocaine patches which you can wear for up to 12 hours in a 24 hour period. Do not apply heat directly over the patches. Please schedule an appointment for follow-up with your primary care physician this week for further evaluation of your symptoms. Return to the emergency department if you experience worsening back pain, difficulty walking, fevers, numbness, tingling, incontinence, groin numbness or tingling, or any other concerning symptoms. Prescriptions: New cyclobenzaprine 5 mg tablet 5 mg PO TID PRN (Reason: muscle spasm) Qty: 10 0RF lidocaine 5 % adhesive patch,medicated 1 patch topical DAILY Qty: 15 0RF Rx Instructions: leave on most painful area for up to 12 hrs No Action lorazepam 1 mg tablet 1 mg PO ONCE PRN (Reason: anxiety) Qty: 2 0RF Rx Instructions: take 1 tablet an hour prior to MRI. Be sure to have some one drive you to and from and the medication can be sedating. diphenhydramine HCl [Benadryl] 25 mg capsule 25 mg PO TID PRN (Reason: allergic reaction) 7 Days Qty: 21 0RF prednisone 20 mg tablet 40 mg PO DAILY 5 Days Qty: 10 0RF famotidine [Pepcid] 20 mg tablet 20 mg PO BID 7 Days Qty: 14 0RF cholecalciferol (vitamin D3) 50 mcg (2,000 unit) capsule 50 mcg PO DAILY 30 Days Qty: 30 11RF tizanidine 2 mg tablet 2 mg PO BEDTIME PRN (Reason: muscle spasticity) Qty: 30 0RF Rx Instructions: start with 1/2 tab as medication can be sedating Print Language: Croatian
[2024-01-11] MEDS: Morphine Sulfate 4 MG/ML CARTRIDGE IVPUSH (14:49)
[2024-01-11] MEDS: ondansetron HCL 4 MG/2 ML VIAL IVPUSH (14:49)
[2024-01-11 14:53] VITALS: BP 120/67; PULSE 65; RESP 16; TEMP 36.8; O2SAT 99
[2024-01-11 16:57] VITALS: BP 109/80; PULSE 61; RESP 16; TEMP 36.6; O2SAT 98
[2024-01-11] MEDS: Ketorolac Tromethamine 15 MG/ML VIAL IVPUSH (16:57)
--- NOTE | 2024-01-11 16:59 | PC.NURSE ---
vss and up to date. pt verbalizing 10/10 left flank pain despite medication administration. delay in most recent medication administration d/t emergent situation in other room. effectiveness pending. respirations remain even and unlabored. plan of care ongoing. call anthony placed within reach.
[2024-01-11] MEDS: Lidocaine 4 % Patch ADH..PATCH 1 PATCH TRANSDERMA (17:47)
[2024-01-11] MEDS: Cyclobenzaprine HCl 10 MG TABLET PO (17:47)
[2024-01-11 19:05] VITALS: BP 120/74; PULSE 61; RESP 16; TEMP 36.7; O2SAT 98
[2024-01-11 19:37] VITALS: BP 122/72; PULSE 66; RESP 16; TEMP 36.8; O2SAT 98
== END 2024-01-11 19:41 | disposition home or self-care (01) ==
PROVIDERS: Emergency Provider Emergency Medicine; PCP Internal Medicine
DX: R10.9 Unspecified abdominal pain (principal); S39.012A Strain of muscle, fascia and tendon of lower back, initial encounter; X58.XXXA Exposure to other specified factors, initial encounter; Y93.9 Activity, unspecified; Y92.9 Unspecified place or not applicable; Y99.9 Unspecified external cause status
CPT/HCPCS: 36415; 74176; 80053; 81003; 81025; 85025; 96374; 96375; 99284; J1885; J2270; J2405

== ENCOUNTER 2024-01-13 10:36 | Emergency (ER) | payer OTHER, SELFPAY ==
[2024-01-13 10:42] VITALS: BP 119/81; PULSE 78; RESP 20; TEMP 35.9; O2SAT 99; BMI 33.6
[2024-01-13 11:12] LABS: MANUAL DIFF FLAG NO
[2024-01-13 11:15] LABS: Basophils Absolute Auto 0.1 X10*3/uL (0.0-0.2); Basophils Percent Auto 0.8 % (0-2); Eosinophils Absolute Auto 0.1 X10*3/uL (0.0-0.4); Eosinophils Percent Auto 1.7 % (0-4); Hematocrit 35.7 % (37.0-47.0); Imm Gran Abs Auto 0.02 X10*3/uL (0.00-0.03); Imm Gran Pct Auto 0.3 % (0.0-0.4); Lymphocytes Absolute Auto 1.5 X10*3/uL (1.2-4.9); Lymphocytes Percent Auto 23.5 % (20-40); Mean Corpuscular HGB Conc 30.8 g/dl (31.0-35.0); Mean Corpuscular Hemoglobin 22.7 pg (27.0-33.0); Mean Corpuscular Volume 73.8 fL (80.0-98.0); Mean Platelet Volume 10.4 fL (9.4-12.3); Monocytes Absolute Auto 0.4 X10*3/uL (0.1-1.2); Monocytes Percent Auto 6.3 % (2-11); Neutrophils Absolute Auto 4.4 x10*3/uL (2.0-8.3); Neutrophils Percent Auto 67.4 % (45-73); Platelet Count 291 X10*3/uL (160-400); Red Blood Count 4.84 X10*6/uL (4.20-5.50); Red Cell Distribution Width 14.5 % (11.0-16.0); White Blood Count 6.5 X10*3/uL (4.8-10.8)
[2024-01-13 11:16] LABS: Appearance Urine Clear; Color Urine Yellow; Glucose Urine UA Negative (Negative); Leukocyte Esterase Urine Negative (Negative); Nitrite Urine Negative (Negative); PH 5.5 (5.0-9.0); Urine Blood Negative (Negative); Urine Ketones Negative (Negative); Urine Protein Negative (Neg-Trace)
[2024-01-13 11:18] LABS: UPreg QC Valid YES; Urine Pregnancy NEGATIVE (NEGATIVE)
[2024-01-13 11:34] LABS: Alanine Aminotransferase 22 U/L (0-31); Albumin Level 4.1 g/dL (3.5-5.0); Alkaline Phosphatase 93 U/L (39-117); Anion Gap 12 (12-20); Aspartate Amino Transferase 19 U/L (5-31); Bilirubin Direct 0.1 mg/dL (0.0-0.5); Bilirubin Total 0.3 mg/dL (0.0-1.0); Blood Urea Nitrogen 10 mg/dL (9-16); Carbon Dioxide 22 mmol/L (22-29); Chloride 107 mmol/L (96-108); Creatinine Clr Calc Pharmacy 96.1; Estimated Glomerular Filt Rate > 60; Glucose Random 135 mg/dL (60-115); Lipase 13 U/L (8-78); Potassium 3.7 mmol/L (3.3-5.1); Sodium 137 mmol/L (135-145); Total Protein 7.9 g/dL (6.5-8.0)
[2024-01-13 14:07] VITALS: BP 142/75; PULSE 81; RESP 16; TEMP 36.5; O2SAT 99
--- NOTE | 2024-01-13 14:08 | ED.GENADULT ---
HPI - General Adult General Chief complaint: Abdominal Pain Stated complaint: Back Pain No Injury Source: patient Mode of arrival: ambulatory Limitations: no limitations History of Present Illness HPI narrative: 43-year-old female history of obesity, Trent's disease, vitamin-D deficiency presenting to the emergency department for 2nd time this week for complaints of left-sided flank pain/back pain, atraumatic in nature, patient reports initially was intermittent pain now is a constant discomfort, reports worse with movement better at rest. She has been taking cyclobenzaprine and Lidoderm patches with little to no relief. She denies urinary/bowel incontinence/retention, saddle paresthesias, weakness, fevers, chills, chest pain, shortness of breath, nausea, vomiting, abdominal pain. She does report that she is having slight burning with urination however this has been going on for the past week or so. Related Data Previous Rx's ?Medication ?Instructions ?Recorded tizanidine 2 mg tablet 2 mg PO BEDTIME PRN muscle 03/20/21 spasticity #30 tabs lorazepam 1 mg tablet 1 mg PO ONCE PRN anxiety #2 tabs 06/19/21 cholecalciferol (vitamin D3) 50 50 mcg PO DAILY 30 days #30 caps 10/31/21 mcg (2,000 unit) capsule diphenhydramine HCl 25 mg capsule 25 mg PO TID PRN allergic reaction 11/01/23 (Benadryl) 7 days #21 caps famotidine 20 mg tablet (Pepcid) 20 mg PO BID 7 days #14 tabs 11/01/23 prednisone 20 mg tablet 40 mg (2 x 20 mg) PO DAILY 5 days 11/01/23 #10 tabs cyclobenzaprine 5 mg tablet 5 mg PO TID PRN muscle spasm #10 01/11/24 tabs lidocaine 5 % topical patch 1 patch topical DAILY #15 ea 01/11/24 acetaminophen 325 mg capsule 650 mg (2 x 325 mg) PO Q4H PRN 01/13/24 (Tylenol) pain #30 caps ketorolac 10 mg tablet 10 mg PO TID PRN pain 5 days #15 01/13/24 tabs prednisone 20 mg tablet 40 mg (2 x 20 mg) PO DAILY 5 days 01/13/24 #10 tabs Allergies Allergy/AdvReac Type Severity Reaction Status Date / Time shellfish derived Allergy Unknown UNKNOWN Verified 01/13/24 10:46 [SHELLFISH DERIVED] Review of Systems Review of Systems: Constitutional : No Weight loss, No Fever, No Chills, ENT/Mouth : No Hearing loss, No Ear Pain, No Nasal Congestion, No Sinus Pain, No Hoarseness, No sore throat, No Rhinorrhea, No Swallowing Difficulty Cardiovascular : No Chest Pain, No SOB Respiratory : No Cough, No Dyspnea Gastrointestinal : No Nausea, No Vomiting, No Diarrhea, No abdominal Pain, No Hematochezia, No Melena Genitourinary : No Dysuria, No Urinary Frequency, No Hematuria, No Urinary Incontinence, Musculoskeletal : positive back pain Skin : No Skin Lesions, No rash Neuro : No Weakness, No Numbness, No Paresthesias, no loss of bowel or bladder incontinence, no saddle anesthesia Yes all other systems are reviewed and are negative [facility] Past Medical History Attestation statement: The following information was validated with the patient. Source: old records reviewed and nursing notes reviewed Medical History Cervical lymphadenopathy Vitamin D deficiency Obesity due to excess calories Trent's disease Surgical History Hx of appendectomy Hx of section Family History Family History Mother Hypertension Diabetes High cholesterol CVA (cerebral vascular accident) Thyroid disease Father Pneumonia Social History Social History Alcohol intake: never Patient Tobacco Use Status: Never used Tobacco Advance Directives: No Advance Directives Information Provided: Yes Do you have a plan to hurt others: No Plan Physical Exam ED Vital Signs: Vital Signs - 24 hr 01/13/24 10:42 Temperature 96.6 F L Pulse Rate 78 Respiratory Rate 20 Blood Pressure 119/81 Pulse Oximetry 99 Oxygen Delivery Method Room Air BMI result Body Mass Index 33.6 vss Appearance: Alert.? Oriented X3.? No acute distress.? Head: Normocephalic, atraumatic, no step-offs or deformities Eyes: Pupils equal, round and reactive to light.? CVS: Normal heart rate and rhythm.? Pulses normal.? Respiratory: No respiratory distress.? Breath sounds normal.? Abdomen: Soft and nontender.? Skin: Skin warm and dry.? Normal skin color.? Normal skin turgor.? Extremities: No lower extremity edema.? No calf ttp. 5/5 strength to bilateral upper and lower extremities Back: No midline tenderness, no C-spine tenderness, full range of motion, no CVA tenderness bilaterally TTP to L sided T8-10 paraspinous muscles. No midline tenderness. no saddle paresthesias. Ambulating w/ slow steady gait. Neuro: Oriented X 3.? No motor deficit.? No sensory deficit. CN 2-12 intact Course Course Course Narrative: This is an RME: Additional HPI, ROS, PE not included below will be deferred to primary provider. 43 yo f presents with left sided back and flank pain with associated pain with urination X 4 days. Reevaluation(s) Reevaluation #1: CBC no acute findings requiring intervention. Chemistry unremarkable. UA no infection. No blood. Unlikely kidney stone. History and physical exam concerning for lumbar paraspinous muscle spasms. Patient will be given Toradol. Will be discharged home with same. No red flag symptoms. No indication for further imaging. Educated patient on diagnosis and treatment plan, answered all question, patient verbalizes understanding. At this time patient will be discharged home, advised to return with new or worsening symptoms. Educated on worrisome signs and symptoms and when to return. At this time I feel comfortable discharge home. Time: 14:19 Medical Decision Making Medical Decision Making [facility] Narrative: 1415 43 yo f presents w/ L sided back pain/ flank pain X about a week. Araumatic. No red flag sx. Seen here on thursday for same complaint. Normal labs, urine and ct scan. DC w/ lidoderm and cyclobenzaprine. PE TTP to L sided T8-10 paraspinous muscles. No midline tenderness. no saddle paresthesias. Ambulating w/ slow steady gait. Concerns for sprain or strain of thoracic spine versus lumbago versus thoracic spine radiculopathy versus paraspinous muscle spasm/tenderness to palpation, unlikely fracture, dislocation, cauda equina, epidural abscess, cord compression. Unlikely pyelonephritis, kidney stone. Burning with urination likely UTI versus cystitis. Likely metabolic derangements. Unlikely sepsis. Plan- toradol, labs, ua and dc Differential Diagnosis Differential Diagnoses: The differential diagnosis associated with the presentation includes Concerns for sprain or strain of thoracic spine versus lumbago versus thoracic spine radiculopathy versus paraspinous muscle spasm/tenderness to palpation, unlikely fracture, dislocation, cauda equina, epidural abscess, cord compression. Unlikely pyelonephritis, kidney stone. Burning with urination likely UTI versus cystitis. Likely metabolic derangements. Unlikely sepsis. Admission/Observation Consideration of admission/observation: Escalation of care including admission/observation considered Unlikely Lab Data MDM Lab Attestation statement: I reviewed the patient's lab results. 01/13/24 11:05 01/13/24 11:05 Labs: Lab Results 01/13/24 01/13/24 Range/Units 11:03 11:05 WBC 6.5 (4.8-10.8) X10*3/uL RBC 4.84 (4.20-5.50) X10*6/uL Hgb 11.0 L (12.0-16.0) g/dl Hct 35.7 L (37.0-47.0) % MCV 73.8 L (80.0-98.0) fL MCH 22.7 L (27.0-33.0) pg MCHC 30.8 L (31.0-35.0) g/dl RDW 14.5 (11.0-16.0) % Plt Count 291 (160-400) X10*3/uL MPV 10.4 (9.4-12.3) fL Immature Gran % (Auto) 0.3 (0.0-0.4) % Neut % (Auto) 67.4 (45-73) % Lymph % (Auto) 23.5 (20-40) % [place] % (Auto) 6.3 (2-11) % Eos % (Auto) 1.7 (0-4) % Baso % (Auto) 0.8 (0-2) % Lymph # (Auto) 1.5 (1.2-4.9) X10*3/uL [place] # (Auto) 0.4 (0.1-1.2) X10*3/uL Eos # (Auto) 0.1 (0.0-0.4) X10*3/uL Baso # (Auto) 0.1 (0.0-0.2) X10*3/uL Abs Immat Gran (auto) 0.02 (0.00-0.03) X10*3/uL Absolute Neuts (auto) 4.4 (2.0-8.3) x10*3/uL Absolute Nucleated RBC 0.000 (0.0-0.012) X10*3/uL Nucleated RBC % (auto) 0.0 (0.0-0.2) /100WBC Sodium 137 (135-145) mmol/L Potassium 3.7 (3.3-5.1) mmol/L Chloride 107 (96-108) mmol/L Carbon Dioxide 22 (22-29) mmol/L Anion Gap 12 (12-20) BUN 10 (9-16) mg/dL Creatinine 0.80 (0.5-1.4) mg/dL Estim Creat Clear Calc 96.1 Estimated GFR > 60 Random Glucose 135 H (60-115) mg/dL Calcium 9.0 (8.4-10.2) mg/dL Total Bilirubin 0.3 (0.0-1.0) mg/dL Direct Bilirubin 0.1 (0.0-0.5) mg/dL AST 19 (5-31) U/L ALT 22 (0-31) U/L Alkaline Phosphatase 93 (39-117) U/L Total Protein 7.9 (6.5-8.0) g/dL Albumin 4.1 (3.5-5.0) g/dL Lipase 13 (8-78) U/L Urine Color Yellow Urine Appearance Clear Urine pH 5.5 (5.0-9.0) Ur Specific [place] 1.020 (1.005-1.025) Urine Protein Negative (Neg-Trace) mg/dL Urine Glucose (UA) Negative (Negative) mg/dL Urine Ketones Negative (Negative) mg/dL Urine Blood Negative (Negative) Urine Nitrite Negative (Negative) Ur Leukocyte Esterase Negative (Negative) Urine Test NEGATIVE (NEGATIVE) Independent Interpretation I performed an independent interpretation of an: CT Scan (from 01/10/ normal unable to explain patients L flank pain ) Radiology Impression Discussion of test interpretation with radiology: I have reviewed the radiologist's reading. External Record Review External record reviewed: Inpatient record, Office record, Outpatient record, Prior outpatient labs, Prior outpatient radiology and Primary care record Prescription Management I considered prescription management with: Pain Medication (Toradol , prednisone ) Chronic Conditions Patient?s care impacted by: Other (obesity ) Critical Care Time Critical Care Time Critical Care Time: Yes Total Critical Care Time: 35 Attestation: I attest to this time spent taking care of the patient, obtaining history, physical, reviewing labs, imaging, speaking to my attending, speaking to specialist. Discharge Plan Discharge Clinical Impression: Left flank pain Patient Disposition: Home, Self-Care Instructions: Flank Pain (ED) Additional Instructions: Take your medications as prescribed. If you were prescribed antibiotics today, it is important that you take your medication to their entirety, do not skip any doses, do not finish them early. Follow-up with your primary care provider this week. Return to the emergency department with new or worsening symptoms. In case of emergency call 911 Prescriptions: New prednisone 20 mg tablet 40 mg PO DAILY 5 Days Qty: 10 0RF ketorolac 10 mg tablet 10 mg PO TID PRN (Reason: pain) 5 Days Qty: 15 0RF acetaminophen [Tylenol] 325 mg capsule 650 mg PO Q4H PRN (Reason: pain) Qty: 30 0RF No Action lorazepam 1 mg tablet 1 mg PO ONCE PRN (Reason: anxiety) Qty: 2 0RF Rx Instructions: take 1 tablet an hour prior to MRI. Be sure to have some one drive you to and from and the medication can be sedating. diphenhydramine HCl [Benadryl] 25 mg capsule 25 mg PO TID PRN (Reason: allergic reaction) 7 Days Qty: 21 0RF prednisone 20 mg tablet 40 mg PO DAILY 5 Days Qty: 10 0RF famotidine [Pepcid] 20 mg tablet 20 mg PO BID 7 Days Qty: 14 0RF cyclobenzaprine 5 mg tablet 5 mg PO TID PRN (Reason: muscle spasm) Qty: 10 0RF lidocaine 5 % adhesive patch,medicated 1 patch topical DAILY Qty: 15 0RF Rx Instructions: leave on most painful area for up to 12 hrs cholecalciferol (vitamin D3) 50 mcg (2,000 unit) capsule 50 mcg PO DAILY 30 Days Qty: 30 11RF tizanidine 2 mg tablet 2 mg PO BEDTIME PRN (Reason: muscle spasticity) Qty: 30 0RF Rx Instructions: start with 1/2 tab as medication can be sedating Referrals: Chan Rosas MD [Primary Care Provider] - 2 days Print Language: Jamaican
[2024-01-13] MEDS: Ketorolac Tromethamine 30 MG/ML VIAL IM (14:18)
[2024-01-13 14:27] VITALS: BP 134/76; PULSE 76; RESP 16; TEMP 37; O2SAT 98
== END 2024-01-13 14:29 | disposition home or self-care (01) ==
PROVIDERS: Emergency Provider Emergency Medicine; PCP Internal Medicine
DX: R10.9 Unspecified abdominal pain (principal); M54.9 Dorsalgia, unspecified
CPT/HCPCS: 36415; 80048; 80076; 81003; 81025; 83690; 85025; 96372; 99283; 99284; J1885

== ENCOUNTER 2024-01-22 10:40 | Outpatient (REF) | payer OTHER, SELFPAY ==
--- NOTE | ~2024-01-22 | XR_ITS ---
EXAMINATION: XR LUMBOSACRAL SPINE CLINICAL INFORMATION: Reason for Exam LOW BACK PAIN COMPARISON: Lumbar spine radiographs 10/14/2022 TECHNIQUE: 3 views of the lumbar spine FINDINGS: 5 nonrib-bearing lumbar-type vertebral bodies. Vertebral body heights are maintained. Alignment is maintained. Mild degenerative disc disease at L4-L5 and L5-S1 with small disc osteophyte complexes progressed from prior. Disc space heights are maintained. Paravertebral soft tissues are unremarkable. XR/XR lumbar spine 2-3V IMPRESSION: Mild degenerative disc disease progressed from prior.
[2024-01-22 11:56] LABS: Estimated Average Glucose 117 mg/dL; Hemoglobin A1c % 5.7 % (<6.0)
[2024-01-22 12:26] LABS: Erythrocyte Sedimentation Rate 16 MM/HR (0-20)
[2024-01-22 13:03] LABS: Anion Gap 13 (12-20); Blood Urea Nitrogen 12 mg/dL (9-16); C Reactive Protein 0.67 mg/dL (< or = 0.50); Calcium 9.3 mg/dL (8.4-10.2); Carbon Dioxide 25 mmol/L (22-29); Chloride 104 mmol/L (96-108); Estimated Glomerular Filt Rate > 60; Glucose Random 104 mg/dL (60-115); Potassium 3.6 mmol/L (3.3-5.1); Sodium 138 mmol/L (135-145)
== END 2024-01-22 10:41 | disposition home or self-care (01) ==
LOC: HO.LAB 10:40
PROVIDERS: PCP Internal Medicine; Visit Provider Internal Medicine
DX: M54.50 Low back pain, unspecified (principal); R73.9 Hyperglycemia, unspecified
CPT/HCPCS: 36415; 72100; 80048; 83036; 85652; 86140

== ENCOUNTER 2024-01-26 12:51 | Outpatient (AMB) | payer OTHER, SELFPAY ==
--- NOTE | 2024-01-26 12:53 | MHC.OFFVIS ---
Vital Signs 01/26/24 12:56 Height 5 ft 3 in Weight 188 lb 11.451 oz BMI 33.4 BP 124/82 Blood Pressure Location Lt brachial Position Sitting Pulse 67 Pulse Source Pulse Oximeter Intake Visit Reasons: F/U Elinor's disease Intake Note: Patient present today for Elinor's disease follow up visit. 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: No Accompanied by: Self / Same As Patient Allergies shellfish derived [SHELLFISH DERIVED] Allergy (Unknown, Verified 01/26/24 12:58) UNKNOWN Medication List - Last Reconciled 01/26/24 by Noah Muniz MD acetaminophen (Tylenol) 650 mg (2 x 325 mg) PO Q4H PRN cholecalciferol (vitamin D3) 50 mcg PO DAILY 30 days cyclobenzaprine 5 mg PO TID PRN diphenhydramine HCl (Benadryl) 25 mg PO TID PRN 7 days famotidine (Pepcid) 20 mg PO BID 7 days ketorolac 10 mg PO TID PRN 5 days lidocaine 5% 1 patch topical DAILY lorazepam 1 mg PO ONCE PRN prednisone 40 mg (2 x 20 mg) PO DAILY 5 days prednisone 40 mg (2 x 20 mg) PO DAILY 5 days tizanidine 2 mg PO BEDTIME PRN HPI Comments Details: 43 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 She was previously followed by Sahara Davis. The patient last saw Dr. Moulton 12/24/2022 She has a history of elinor's disease but previously her TSH had been normal. TPO antibodies were elevated to ~900. She remains off any thyroid hormone supplementation at this time. She did have an US of the thyroid which was consistent with Elinor's disease with a diffusely heterogenous gland. She had labs assessed which revealed Calcium and PTH WNL, but with very low Vitamin D. She was started on Vitamin D 2000 IU daily. Vitamin D now at goal. She reports feeling well and has no complaints of symptoms of hypothyroidism today. She reports menses are regular, coming every month. Labs: Laboratory Tests 12/19/22 15:54 25-OH Vitamin D Total 41.2 TSH 3.02 Free T4 0.97 PFSH Medical History Cervical lymphadenopathy Vitamin D deficiency Obesity due to excess calories Elinor's disease Surgical History Hx of appendectomy Hx of section Family History Mother Hypertension Diabetes High cholesterol CVA (cerebral vascular accident) Thyroid disease Father Pneumonia Social History Alcohol intake: never Patient Tobacco Use Status: Never used Tobacco Physical Exam Vital Signs: Last Vital Signs Pulse 67 01/26/24 12:56 BP 124/82 01/26/24 12:56 BMI result Body Mass Index 33.4 Const Other: Thyroid gland is enlarged in l size weighs about 35 g . There are no thyroid nodules palpated. There is a negative Brittany sign Assessment & Plan Assessment & Plan (1) Elinor's disease: Code(s): E06.3 - Autoimmune thyroiditis Category: Medical Plan: This is a 43-year-old female with a history of Elinor's thyroiditis. She appears clinically euthyroid Will repeat TSH and free T4. Assuming above is normal, patient can follow up with the primary care provider returned back to endocrinology as needed. If TSH is substantially elevated, will place on levothyroxine have returned back to endocrinology. I did tell her that she experiences obstructive symptoms to returned back to endocrinology for discussion of possible thyroid surgery which I did not feel is necessary at this point (2) Cervical lymphadenopathy: Code(s): R59.0 - Localized enlarged lymph nodes Category: Medical Plan: Repeat ultrasound was within normal limits (3) Vitamin D deficiency: Code(s): E55.9 - Vitamin D deficiency, unspecified Category: Medical Plan: Vitamin D at goal. No changes. Orders: Orders Free T4 (Free Thyroxine) Today E06.3 - Autoimmune thyroiditis Thyroid Stimulating Hormone Today E06.3 - Autoimmune thyroiditis Coding Level of Care Code Est Pt Level 3 (64013) Diagnoses Elinor's disease E06.3 Cervical lymphadenopathy R59.0 Vitamin D deficiency E55.9
[2024-01-26 12:56] VITALS: BP 124/82; PULSE 67; BMI 33.4
== END 2024-01-26 13:22 | disposition home or self-care (01) ==
PROVIDERS: PCP Internal Medicine; Visit Provider Internal Medicine Endocrinology, Diabetes & Metabolism
DX: E06.3 Autoimmune thyroiditis (principal); R59.0 Localized enlarged lymph nodes; E55.9 Vitamin D deficiency, unspecified
CPT/HCPCS: 99213

== ENCOUNTER → 2024-01-26 12:51 | Outpatient (BNVA) | payer OTHER, SELFPAY | PROVIDERS: PCP Internal Medicine; Visit Provider Internal Medicine Endocrinology, Diabetes & Metabolism | DX: E06.3 Autoimmune thyroiditis (principal); R59.0 Localized enlarged lymph nodes; E55.9 Vitamin D deficiency, unspecified | CPT/HCPCS: 99212 ==

== ENCOUNTER 2024-01-27 09:29 | Outpatient (REF) | payer OTHER, SELFPAY ==
[2024-01-27 11:53] LABS: Free T4 (Free Thyroxine) 0.74 ng/dL (0.71-1.85); Thyroid Stimulating Hormone 3.71 uIU/mL (0.32-4.0)
== END 2024-01-27 09:30 | disposition home or self-care (01) ==
LOC: HO.10HDL 09:29
PROVIDERS: Visit Provider Internal Medicine Endocrinology, Diabetes & Metabolism
DX: E06.3 Autoimmune thyroiditis (principal)
CPT/HCPCS: 36415; 84439; 84443

== ENCOUNTER 2024-04-27 18:27 | Emergency (ER) | payer OTHER, SELFPAY ==
--- NOTE | 2024-04-27 18:28 | ED.BACK ---
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 Pain is nonradiating. Has been taking OTC medications without relief. Admits to similar symptoms in the past with muscular strain. Denies injury, trauma/fall, numbness, tingling, weakness, incontinence/retention, dysuria/hematuria Related Data Previous Rx's ?Medication ?Instructions ?Recorded tizanidine 2 mg tablet 2 mg PO BEDTIME PRN muscle 03/20/21 spasticity #30 tabs lorazepam 1 mg tablet 1 mg PO ONCE PRN anxiety #2 tabs 06/19/21 cholecalciferol (vitamin D3) 50 50 mcg PO DAILY 30 days #30 caps 10/31/21 mcg (2,000 unit) capsule diphenhydramine HCl 25 mg capsule 25 mg PO TID PRN allergic reaction 11/01/23 (Benadryl) 7 days #21 caps famotidine 20 mg tablet (Pepcid) 20 mg PO BID 7 days #14 tabs 11/01/23 prednisone 20 mg tablet 40 mg (2 x 20 mg) PO DAILY 5 days 11/01/23 #10 tabs cyclobenzaprine 5 mg tablet 5 mg PO TID PRN muscle spasm #10 01/11/24 tabs lidocaine 5 % topical patch 1 patch topical DAILY #15 ea 01/11/24 acetaminophen 325 mg capsule 650 mg (2 x 325 mg) PO Q4H PRN 01/13/24 (Tylenol) pain #30 caps ketorolac 10 mg tablet 10 mg PO TID PRN pain 5 days #15 01/13/24 tabs prednisone 20 mg tablet 40 mg (2 x 20 mg) PO DAILY 5 days 01/13/24 #10 tabs acetaminophen 500 mg tablet 500 mg PO Q6H PRN fever or pain 04/27/24 (Tylenol Extra Strength) #14 tabs cyclobenzaprine 5 mg tablet 5 mg PO Q8H PRN pain (scale score 04/27/24 7-10) 5 days #14 tabs ketorolac 10 mg tablet 10 mg PO TID PRN pain 5 days #15 04/27/24 tabs lidocaine 5 % topical patch 1 patch topical DAILY PRN pain #30 04/27/24 (Lidoderm) ea Allergies Allergy/AdvReac Type Severity Reaction Status Date / Time shellfish derived Allergy Unknown UNKNOWN Verified 04/27/24 18:31 [SHELLFISH DERIVED] Review of Systems Review of Systems: Constitutional: No Fever, No Chills Cardiovascular: No Chest Pain, No SOB Respiratory: No Cough Gastrointestinal: No Nausea, No Vomiting, No Abdominal pain Genitourinary: No Dysuria, No Urinary Frequency, No Hematuria, No Urinary Incontinence/retention, No Flank Pain Musculoskeletal: + joint pain, No Myalgias Skin: No Skin Lesions, No rash Neuro: No Weakness, No Numbness, No Paresthesias Yes all other systems are reviewed and are negative Constitutional: Constitutional: Reports as per [facility] Past Medical History Attestation statement: The following information was validated with the patient. Source: old records reviewed Medical History Cervical lymphadenopathy Vitamin D deficiency Obesity due to excess calories Trent's disease Surgical History Hx of appendectomy Hx of section Family History Family History Mother Hypertension Diabetes High cholesterol CVA (cerebral vascular accident) Thyroid disease Father Pneumonia Social History Social History Alcohol intake: never Patient Tobacco Use Status: Never used Tobacco Physical Exam Vital Signs: Vital Signs: Last Vital Signs Temp 96.9 F 04/27/24 18:29 Pulse 78 04/27/24 18:29 Resp 20 04/27/24 18:29 BP 165/95 H 04/27/24 18:29 Pulse Ox 100 04/27/24 18:29 O2 Del Method Room Air 04/27/24 18:29 BMI result Body Mass Index 33.7 Const: General: cooperative, healthy appearing and no acute distress Orientation/consciousness: patient oriented x3 Limitations: no limitations HEENT: Head: Yes normal to inspection and Yes atraumatic Ears: hearing grossly normal bilaterally General nose exam: Normal external nose present Face and sinus: Yes normal facial exam Eyes: General: appearance normal, both eyes and all related structures EOM: EOMs intact bilaterally Neck: Neck: Yes normal visual inspection and Yes no meningeal signs Resp: Effort & Inspection: normal respiratory effort and no respiratory distress Cardio: Rate: regular rate GI: Inspection: Yes normal to inspection Palpation (GI): Soft to palpation, nontender, no guarding and not rigid : General: Yes no CVA tenderness Back/Spine/Pelvis: Other: No midline cervical/thoracic/lumbar spinous tenderness/step-off or deformity. +right lower lumbar paraspinal reproducible ttp Back: no CVA tenderness Skin: Rashes: no rashes Wounds: no wounds Neuro: Other: Strength intact throughout. No saddle anesthesia. Sensation intact to light touch. 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 On exam vital signs stable, NAD, nontoxic appearing, physical exam as above without midline spinous tenderness or red flag symptoms. Ambulating with antalgic gait. Concern for MSK pain/strain and spasming. Low suspicion for sciatica, cauda equina/cord compression, epidural abscess, renal stone or intra-abdominal pathology Plan: IM Toradol, pain medication, PCP follow-up Please refer to course for remaining clinical decision making, interpretation of labs/imaging results, and discussions with consultants and/or family members. Results discussed with patient including worrisome signs and symptoms and strict return precautions, and when to return to the emergency department. They verbalized understanding and feel safe for discharge at this time. Differential Diagnosis Differential Diagnoses: The differential diagnosis associated with the presentation includes As above Radiology Impression Radiologist Impression: XR & CT considered however not needed at this time External Record Review External record reviewed: Inpatient record, Office record, Outpatient record, Prior outpatient labs, Prior outpatient radiology, Primary care record and Outside ED record Tests considered The following testing was considered but not selected: As above Prescription Management I considered prescription management with: Pain Medication Discharge Plan Discharge Clinical Impression: Strain of lumbar region Patient Disposition: Home, Self-Care Instructions: Acute Low Back Pain (ED) Additional Instructions: Your pain is likely musculoskeletal Flexeril is a muscle relaxer, take at night as it makes you drowsy, do not drive, drink alcohol, or operate machinery while taking it Toradol as an anti-inflammatory / pain medication, take with food Lidoderm patches are numbing patches, apply to painful area In addition take Tylenol at home If symptoms persist or worsen, pain becomes unbearable, you developed urinary retention or incontinence, or weakness return to the ED Prescriptions: New ketorolac 10 mg tablet 10 mg PO TID PRN (Reason: pain) 5 Days Qty: 15 0RF cyclobenzaprine 5 mg tablet 5 mg PO Q8H PRN (Reason: pain (scale score 7-10)) 5 Days Qty: 14 0RF acetaminophen [Tylenol Extra Strength] 500 mg tablet 500 mg PO Q6H PRN (Reason: fever or pain) Qty: 14 0RF lidocaine [Lidoderm] 5 % adhesive patch,medicated 1 patch topical DAILY MDD remove after 12 hours PRN (Reason: pain) Qty: 30 0RF Rx Instructions: leave on most painful area for up to 12 hrs No Action lorazepam 1 mg tablet 1 mg PO ONCE PRN (Reason: anxiety) Qty: 2 0RF Rx Instructions: take 1 tablet an hour prior to MRI. Be sure to have some one drive you to and from and the medication can be sedating. diphenhydramine HCl [Benadryl] 25 mg capsule 25 mg PO TID PRN (Reason: allergic reaction) 7 Days Qty: 21 0RF prednisone 20 mg tablet 40 mg PO DAILY 5 Days Qty: 10 0RF famotidine [Pepcid] 20 mg tablet 20 mg PO BID 7 Days Qty: 14 0RF prednisone 20 mg tablet 40 mg PO DAILY 5 Days Qty: 10 0RF ketorolac 10 mg tablet 10 mg PO TID PRN (Reason: pain) 5 Days Qty: 15 0RF acetaminophen [Tylenol] 325 mg capsule 650 mg PO Q4H PRN (Reason: pain) Qty: 30 0RF cyclobenzaprine 5 mg tablet 5 mg PO TID PRN (Reason: muscle spasm) Qty: 10 0RF lidocaine 5 % adhesive patch,medicated 1 patch topical DAILY Qty: 15 0RF Rx Instructions: leave on most painful area for up to 12 hrs cholecalciferol (vitamin D3) 50 mcg (2,000 unit) capsule 50 mcg PO DAILY 30 Days Qty: 30 11RF tizanidine 2 mg tablet 2 mg PO BEDTIME PRN (Reason: muscle spasticity) Qty: 30 0RF Rx Instructions: start with 1/2 tab as medication can be sedating Referrals: Chan Rosas MD [Primary Care Provider] - 1 week Stand Alone Forms: Work/School Release Print Language: Divehi
[2024-04-27 18:29] VITALS: BP 165/95; PULSE 78; RESP 20; TEMP 36.1; O2SAT 100; BMI 33.7
[2024-04-27] MEDS: Ketorolac Tromethamine 30 MG/ML VIAL IM (18:35)
[2024-04-27 18:41] VITALS: BP 165/95; PULSE 78; RESP 20; TEMP 36.1; O2SAT 100
== END 2024-04-27 18:42 | disposition home or self-care (01) ==
LOC: HO.ED 18:39
PROVIDERS: Emergency Provider Student in an Organized Health Care Education/Training Program; PCP Internal Medicine
DX: S39.012A Strain of muscle, fascia and tendon of lower back, initial encounter (principal); X58.XXXA Exposure to other specified factors, initial encounter; Y93.89 Activity, other specified; Y92.89 Other specified places as the place of occurrence of the external cause; Y99.8 Other external cause status
CPT/HCPCS: 96372; 99283; 99284; J1885

== ENCOUNTER 2024-05-01 12:46 | Emergency (ER) | payer OTHER, SELFPAY ==
--- NOTE | ~2024-05-01 | CT_ITS ---
EXAMINATION: CT ABDOMEN AND PELVIS WITHOUT CONTRAST CLINICAL INFORMATION: Left flank pain COMPARISON: CT abdomen from 01/11/2020 TECHNIQUE: Multidetector volumetric imaging was performed from the superior aspect of the liver through the pubic symphysis. Sagittal and coronal reformatted images were obtained on the technologist's workstation. This CT examination was performed using dose optimization techniques as appropriate, variously including the following: *Automated exposure control *Adjustment of mA and/or kV according to patient size (this includes techniques or standardized protocols for targeted exams where dose is matched to indication/reason for exam; i.e. extremities or head) *Use of iterative reconstruction technique DLP: 683 mGy-cm FINDINGS: LUNG BASES: Bibasilar atelectasis. No pneumothorax. No large pleural effusion. LIVER, GALLBLADDER, AND BILIARY TREE: The liver is normal in size, shape, and attenuation. No focal hepatic lesion or biliary ductal dilatation is present. The gallbladder is unremarkable with no evidence of radiopaque gallstones, gallbladder wall thickening, or obvious pericholecystic inflammatory changes. PANCREAS: Unremarkable. SPLEEN: Unremarkable. ADRENAL GLANDS: Unremarkable. KIDNEYS AND URETERS: Hypodense focus left renal interpolar region demonstrating fluid attenuation statistically representing a cyst, not requiring follow-up. The kidneys are normal in size, shape, and attenuation. No hydronephrosis, hydroureter, or calculi seen. No perinephric stranding. BLADDER: Unremarkable. GASTROINTESTINAL TRACT: The small and large bowel are unremarkable. The appendix is not definitively visualized. ABDOMINAL WALL: No significant hernia is appreciated. LYMPH NODES: No enlarged lymph nodes per size criteria. VASCULAR: Abdominal aorta is nonaneurysmal. PELVIC VISCERA: Anteverted uterus. Bilateral adnexal/ovarian hypodense foci measuring up to 2.4 cm. Findings are overwhelmingly likely to represent a normal ovarian follicle. No follow-up imaging recommended. OSSEOUS STRUCTURES: Unremarkable. CT/CT abdomen pelvis wo IV con IMPRESSION: No acute process of the abdomen or pelvis identified.
[2024-05-01 12:50] VITALS: BP 174/90; PULSE 79; RESP 20; TEMP 37.2; O2SAT 98; BMI 33.7
--- NOTE | 2024-05-01 12:51 | ED_ITS ---
HPI - General Adult General Chief complaint: Abdominal Pain Stated complaint: l flank pain Time Seen by Provider: 05/01/24 13:14 Source: patient, family and old records reviewed Mode of arrival: ambulatory Limitations: no limitations History of Present Illness ED Provider: LAM CHRIS narrative: 44 yo female with recurrent L flank pain and back pain no b/b incontinence no saddle anesthesia at this time c/o recurrent pain no trauma no IVDA no thinners pain wraps around now. Just seen started on PO medications without helping. Hurts to move and walk around. No n/v/d. Has had this before MD complaint: flank and back pain Onset (ago): month(s) (6) Location: back and abdomen Radiation: abdomen Severity: severe Quality: stabbing, aching and constant Pain Consistency: intermittent Relieving factors: none Exacerbating factors: movement Associated symptoms: denies other symptoms Treatments prior to arrival: NSAID and heat therapy Related Data Previous Rx's ?Medication ?Instructions ?Recorded tizanidine 2 mg tablet 2 mg PO BEDTIME PRN muscle 03/20/21 spasticity #30 tabs lorazepam 1 mg tablet 1 mg PO ONCE PRN anxiety #2 tabs 06/19/21 cholecalciferol (vitamin D3) 50 50 mcg PO DAILY 30 days #30 caps 10/31/21 mcg (2,000 unit) capsule diphenhydramine HCl 25 mg capsule 25 mg PO TID PRN allergic reaction 11/01/23 (Benadryl) 7 days #21 caps famotidine 20 mg tablet (Pepcid) 20 mg PO BID 7 days #14 tabs 11/01/23 prednisone 20 mg tablet 40 mg (2 x 20 mg) PO DAILY 5 days 11/01/23 #10 tabs cyclobenzaprine 5 mg tablet 5 mg PO TID PRN muscle spasm #10 01/11/24 tabs lidocaine 5 % topical patch 1 patch topical DAILY #15 ea 01/11/24 acetaminophen 325 mg capsule 650 mg (2 x 325 mg) PO Q4H PRN 01/13/24 (Tylenol) pain #30 caps ketorolac 10 mg tablet 10 mg PO TID PRN pain 5 days #15 01/13/24 tabs prednisone 20 mg tablet 40 mg (2 x 20 mg) PO DAILY 5 days 01/13/24 #10 tabs acetaminophen 500 mg tablet 500 mg PO Q6H PRN fever or pain 04/27/24 (Tylenol Extra Strength) #14 tabs cyclobenzaprine 5 mg tablet 5 mg PO Q8H PRN pain (scale score 04/27/24 7-10) 5 days #14 tabs ketorolac 10 mg tablet 10 mg PO TID PRN pain 5 days #15 04/27/24 tabs lidocaine 5 % topical patch 1 patch topical DAILY PRN pain #30 04/27/24 (Lidoderm) ea diazepam 5 mg tablet (Valium) 5 mg PO TID PRN muscle spasm #10 05/01/24 tabs Allergies Allergy/AdvReac Type Severity Reaction Status Date / Time shellfish derived Allergy Unknown UNKNOWN Verified 05/01/24 12:53 [SHELLFISH DERIVED] Review of Systems 2 Review of Systems: Constitutional : No Weight loss, No Fever, No Chills, ENT/Mouth : No Hearing loss, No Ear Pain, No Nasal Congestion, No Sinus Pain, No Hoarseness, No sore throat, No Rhinorrhea, No Swallowing Difficulty Cardiovascular : No Chest Pain, No SOB Respiratory : No Cough, No Dyspnea Gastrointestinal : No Nausea, No Vomiting, No Diarrhea, pos abdominal Pain, No Hematochezia, No Melena Genitourinary : No Dysuria, No Urinary Frequency, No Hematuria, No Urinary Incontinence, Musculoskeletal : positive back pain Skin : No Skin Lesions, No rash Neuro : No Weakness, No Numbness, No Paresthesias, no loss of bowel or bladder incontinence, no saddle anesthesia All other systems reviewed and are negative PMFSH Past Medical History Attestation statement: The following information was validated with the patient. Source: old records reviewed Medical History Cervical lymphadenopathy Vitamin D deficiency Obesity due to excess calories Trent's disease Surgical History Hx of appendectomy Hx of section Family History Family History Mother Hypertension Diabetes High cholesterol CVA (cerebral vascular accident) Thyroid disease Father Pneumonia Social History Social History Alcohol intake: never Patient Tobacco Use Status: Never used Tobacco Smoked in Last 30 Days: No Use of substances other than those prescribed or required for medical reasons: No Advance Directives: No Advance Directives Information Provided: Yes Do you have a plan to hurt others: No Plan Patient : No Physical Exam ED Vital Signs: Vital Signs - 24 hr 05/01/24 12:50 05/01/24 14:24 Temperature 98.9 F 98.1 F Pulse Rate 79 66 Respiratory Rate 20 16 Blood Pressure 174/90 H 142/88 H Pulse Oximetry 98 97 Oxygen Delivery Method Room Air Room Air BMI result Body Mass Index 33.7 Appearance: Alert. Oriented X3. No acute distress. Eyes: Pupils equal, round and reactive to light. ENT: Pharynx normal. Neck: Normal inspection. Neck supple. CVS: Normal heart rate and rhythm. Pulses normal. Respiratory: No respiratory distress. Breath sounds normal. Abdomen: Soft and mild LUQ ttp no rebound or guarding Back: ttp L flank Skin: Skin warm and dry. Normal skin color. Normal skin turgor. Extremities: No lower extremity edema. Neuro: Oriented X 3. No motor deficit. No sensory deficit. Course Course Course Narrative: This is a rapid medical exam performed by Yaya Johnson NP: Additional HPI, ROS, PE not included below will be deferred to primary provider. Patient is a 44-year-old female presenting to the emergency with complaint of left back and flank pain. Seen here for same on Thu, states pain is now moving to more areas. Endorses nausea but denies vomiting. Pain with urination. Plan: labs, UA, CT Medications Administered Discontinued Medications Generic Name Dose Route Start Last Admin Trade Name Freq PRN Reason Stop Dose Admin Diazepam 5 mg 05/01/24 13:54 05/01/24 14:20 Diazepam 5 Mg Tablet PO 05/01/24 13:55 5 mg ONCE ONE Administration Medical Decision Making Medical Decision Making MDM Narrative: 44 yo female with PMH of musculoskeletal pain and chronic L flank pain on and off for 6 months worse x 1 week no cauda equina symptoms on IVDA, no AC therapy at this time CT scan and labs from triage, UA no infection suspect it is her L4- L5, L5-S1 worsening disc herniation pain will start on valium. Refer to PCP for MRI and spine center Differential Diagnosis Differential Diagnoses: The differential diagnosis associated with the presentation includes strain, MSK pain, sciatica Admission/Observation Consideration of admission/observation: Escalation of care including admission/observation considered feels better stable for DC Lab Data MDM Lab Attestation statement: I reviewed the patient's lab results. H/H at [facility] 05/01/24 13:03 05/01/24 13:03 Labs: Lab Results 05/01/24 Range/Units 13:03 WBC 7.5 (4.8-10.8) X10*3/uL RBC 4.75 (4.20-5.50) X10*6/uL Hgb 11.0 L (12.0-16.0) g/dl Hct 35.0 L (37.0-47.0) % MCV 73.7 L (80.0-98.0) fL MCH 23.2 L (27.0-33.0) pg MCHC 31.4 (31.0-35.0) g/dl RDW 13.6 (11.0-16.0) % Plt Count 284 (160-400) X10*3/uL MPV 10.6 (9.4-12.3) fL Immature Gran % (Auto) 0.0 (0.0-0.4) % Neut % (Auto) 66.5 (45-73) % Lymph % (Auto) 23.5 (20-40) % [place] % (Auto) 8.0 (2-11) % Eos % (Auto) 1.3 (0-4) % Baso % (Auto) 0.7 (0-2) % Lymph # (Auto) 1.8 (1.2-4.9) X10*3/uL [place] # (Auto) 0.6 (0.1-1.2) X10*3/uL Eos # (Auto) 0.1 (0.0-0.4) X10*3/uL Baso # (Auto) 0.1 (0.0-0.2) X10*3/uL Abs Immat Gran (auto) 0.00 (0.00-0.03) X10*3/uL Absolute Neuts (auto) 5.0 (2.0-8.3) x10*3/uL Absolute Nucleated RBC 0.000 (0.0-0.012) X10*3/uL Nucleated RBC % (auto) 0.0 (0.0-0.2) /100WBC Sodium 139 (135-145) mmol/L Potassium 3.9 (3.3-5.1) mmol/L Chloride 108 (96-108) mmol/L Carbon Dioxide 24 (22-29) mmol/L Anion Gap 11 L (12-20) BUN 12 (9-16) mg/dL Creatinine 0.80 (0.5-1.4) mg/dL Estim Creat Clear Calc 95.3 Estimated GFR > 60 Random Glucose 94 (60-115) mg/dL Calcium 9.1 (8.4-10.2) mg/dL Total Bilirubin 0.2 (0.0-1.0) mg/dL AST 24 (5-31) U/L ALT 23 (0-31) U/L Alkaline Phosphatase 99 (39-117) U/L Total Protein 8.1 H (6.5-8.0) g/dL Albumin 4.2 (3.5-5.0) g/dL Beta HCG, Quant < 2 mIU/mL Urine Color Yellow Urine Appearance Cloudy Urine pH 6.0 (5.0-9.0) Ur Specific [place] 1.020 (1.005-1.025) Urine Protein Negative (Neg-Trace) mg/dL Urine Glucose (UA) Negative (Negative) mg/dL Urine Ketones Negative (Negative) mg/dL Urine Blood Negative (Negative) Urine Nitrite Negative (Negative) Ur Leukocyte Esterase Negative (Negative) Independent Interpretation I performed an independent interpretation of an: CT Scan (no acute findings) Radiology Impression Discussion of test interpretation with radiology: I have reviewed the radiologist's reading. Independent Historian Clinical information obtained from an independent historian. History obtained from or confirmed by: Other External Record Review External record reviewed: Inpatient record and Outpatient record Prescription Management I considered prescription management with: Pain Medication and Other Discharge Plan Discharge Clinical Impression: Left flank pain, Low back pain Patient Disposition: Home, Self-Care Instructions: Flank Pain (ED), Chronic Back Pain (DC) Additional Instructions: no acute findings today suspect this is due to worsening degeneration at L4-L5, L5-S1 disc return for worsening pain, fevers, loss of control of bowel or bladder or numbness in genital area follow up with primary care doctor for MRI follow up with our spine center [phone] Prescriptions: New diazepam [Valium] 5 mg tablet 5 mg PO TID PRN (Reason: muscle spasm) Qty: 10 0RF Rx Instructions: partial fill is okay No Action lorazepam 1 mg tablet 1 mg PO ONCE PRN (Reason: anxiety) Qty: 2 0RF Rx Instructions: take 1 tablet an hour prior to MRI. Be sure to have some one drive you to and from and the medication can be sedating. diphenhydramine HCl [Benadryl] 25 mg capsule 25 mg PO TID PRN (Reason: allergic reaction) 7 Days Qty: 21 0RF prednisone 20 mg tablet 40 mg PO DAILY 5 Days Qty: 10 0RF famotidine [Pepcid] 20 mg tablet 20 mg PO BID 7 Days Qty: 14 0RF prednisone 20 mg tablet 40 mg PO DAILY 5 Days Qty: 10 0RF ketorolac 10 mg tablet 10 mg PO TID PRN (Reason: pain) 5 Days Qty: 15 0RF acetaminophen [Tylenol] 325 mg capsule 650 mg PO Q4H PRN (Reason: pain) Qty: 30 0RF ketorolac 10 mg tablet 10 mg PO TID PRN (Reason: pain) 5 Days Qty: 15 0RF cyclobenzaprine 5 mg tablet 5 mg PO Q8H PRN (Reason: pain (scale score 7-10)) 5 Days Qty: 14 0RF acetaminophen [Tylenol Extra Strength] 500 mg tablet 500 mg PO Q6H PRN (Reason: fever or pain) Qty: 14 0RF lidocaine [Lidoderm] 5 % adhesive patch,medicated 1 patch topical DAILY MDD remove after 12 hours PRN (Reason: pain) Qty: 30 0RF Rx Instructions: leave on most painful area for up to 12 hrs cyclobenzaprine 5 mg tablet 5 mg PO TID PRN (Reason: muscle spasm) Qty: 10 0RF lidocaine 5 % adhesive patch,medicated 1 patch topical DAILY Qty: 15 0RF Rx Instructions: leave on most painful area for up to 12 hrs cholecalciferol (vitamin D3) 50 mcg (2,000 unit) capsule 50 mcg PO DAILY 30 Days Qty: 30 11RF tizanidine 2 mg tablet 2 mg PO BEDTIME PRN (Reason: muscle spasticity) Qty: 30 0RF Rx Instructions: start with 1/2 tab as medication can be sedating Print Language: Wolof
[2024-05-01 13:08] LABS: MANUAL DIFF FLAG NO
[2024-05-01 13:10] LABS: Appearance Urine Cloudy; Color Urine Yellow; Glucose Urine UA Negative (Negative); Leukocyte Esterase Urine Negative (Negative); Nitrite Urine Negative (Negative); Urine Blood Negative (Negative); Urine Ketones Negative (Negative); Urine Protein Negative (Neg-Trace)
[2024-05-01 13:12] LABS: Basophils Absolute Auto 0.1 X10*3/uL (0.0-0.2); Basophils Percent Auto 0.7 % (0-2); Eosinophils Absolute Auto 0.1 X10*3/uL (0.0-0.4); Eosinophils Percent Auto 1.3 % (0-4); Lymphocytes Absolute Auto 1.8 X10*3/uL (1.2-4.9); Lymphocytes Percent Auto 23.5 % (20-40); Mean Corpuscular HGB Conc 31.4 g/dl (31.0-35.0); Mean Corpuscular Hemoglobin 23.2 pg (27.0-33.0); Mean Corpuscular Volume 73.7 fL (80.0-98.0); Mean Platelet Volume 10.6 fL (9.4-12.3); Monocytes Absolute Auto 0.6 X10*3/uL (0.1-1.2); Neutrophils Percent Auto 66.5 % (45-73); Platelet Count 284 X10*3/uL (160-400); Red Blood Count 4.75 X10*6/uL (4.20-5.50); Red Cell Distribution Width 13.6 % (11.0-16.0); White Blood Count 7.5 X10*3/uL (4.8-10.8)
[2024-05-01 13:32] LABS: Alanine Aminotransferase 23 U/L (0-31); Albumin Level 4.2 g/dL (3.5-5.0); Alkaline Phosphatase 99 U/L (39-117); Anion Gap 11 (12-20); Aspartate Amino Transferase 24 U/L (5-31); Bilirubin Total 0.2 mg/dL (0.0-1.0); Blood Urea Nitrogen 12 mg/dL (9-16); Calcium 9.1 mg/dL (8.4-10.2); Carbon Dioxide 24 mmol/L (22-29); Chloride 108 mmol/L (96-108); Creatinine Clr Calc Pharmacy 95.3; Estimated Glomerular Filt Rate > 60; Glucose Random 94 mg/dL (60-115); Potassium 3.9 mmol/L (3.3-5.1); Sodium 139 mmol/L (135-145); Total Protein 8.1 g/dL (6.5-8.0)
[2024-05-01 13:37] LABS: HCG Quantitative < 2 mIU/mL
[2024-05-01] MEDS: diazePAM 5 MG TABLET PO (14:20)
[2024-05-01 14:24] VITALS: BP 142/88; PULSE 66; RESP 16; TEMP 36.7; O2SAT 97
[2024-05-01 16:50] VITALS: BP 145/81; PULSE 58; RESP 15; TEMP 36.8; O2SAT 99
[2024-05-01 17:18] VITALS: BP 145/81; PULSE 58; RESP 15; TEMP 36.8; O2SAT 99
== END 2024-05-01 17:19 | disposition home or self-care (01) ==
PROVIDERS: Registered Nurse Emergency; Emergency Provider Emergency Medicine; PCP Internal Medicine
DX: R10.9 Unspecified abdominal pain (principal); M54.50 Low back pain, unspecified; Z79.899 Other long term (current) drug therapy
CPT/HCPCS: 36415; 74176; 80053; 81003; 84702; 85025; 99284

== ENCOUNTER 2025-04-24 08:58 | Emergency (ER) | payer SELFPAY ==
[2025-04-24 09:03] VITALS: BP 135/68; PULSE 67; RESP 16; TEMP 37; O2SAT 100; BMI 33.7
--- NOTE | 2025-04-24 09:31 | ED.BACK ---
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 lock up and get stuck?. Patient states she has a history of lower back pain, this episode feels similar. Patient reports she has been taking Tylenol, took 3 Flexeril muscle relaxer yesterday, and lidocaine patches without effect. Denies history of IV drug use, recent fall, trauma, injury. Denies fever, chills, chest pain, shortness of breath, abdominal pain, nausea, vomiting, saddle paresthesias, urinary/bowel incontinence, urinary symptoms. Related Data Previous Rx's ?Medication ?Instructions ?Recorded tizanidine 2 mg tablet 2 mg PO BEDTIME PRN muscle 03/20/21 spasticity #30 tabs lorazepam 1 mg tablet 1 mg PO ONCE PRN anxiety #2 tabs 06/19/21 cholecalciferol (vitamin D3) 50 50 mcg PO DAILY 30 days #30 caps 10/31/21 mcg (2,000 unit) capsule diphenhydramine HCl 25 mg capsule 25 mg PO TID PRN allergic reaction 11/01/23 (Benadryl) 7 days #21 caps famotidine 20 mg tablet (Pepcid) 20 mg PO BID 7 days #14 tabs 11/01/23 prednisone 20 mg tablet 40 mg (2 x 20 mg) PO DAILY 5 days 11/01/23 #10 tabs cyclobenzaprine 5 mg tablet 5 mg PO TID PRN muscle spasm #10 01/11/24 tabs lidocaine 5 % topical patch 1 patch topical DAILY #15 ea 01/11/24 acetaminophen 325 mg capsule 650 mg (2 x 325 mg) PO Q4H PRN 01/13/24 (Tylenol) pain #30 caps ketorolac 10 mg tablet 10 mg PO TID PRN pain 5 days #15 01/13/24 tabs prednisone 20 mg tablet 40 mg (2 x 20 mg) PO DAILY 5 days 01/13/24 #10 tabs acetaminophen 500 mg tablet 500 mg PO Q6H PRN fever or pain 04/27/24 (Tylenol Extra Strength) #14 tabs cyclobenzaprine 5 mg tablet 5 mg PO Q8H PRN pain (scale score 04/27/24 7-10) 5 days #14 tabs ketorolac 10 mg tablet 10 mg PO TID PRN pain 5 days #15 04/27/24 tabs lidocaine 5 % topical patch 1 patch topical DAILY PRN pain #30 04/27/24 (Lidoderm) ea diazepam 5 mg tablet (Valium) 5 mg PO TID PRN muscle spasm #10 05/01/24 tabs methocarbamol 750 mg tablet 750 mg PO BEDTIME 4 days #4 tabs 04/24/25 prednisone 20 mg tablet 40 mg (2 x 20 mg) PO DAILY 4 days 04/24/25 #8 tabs Allergies Allergy/AdvReac Type Severity Reaction Status Date / Time shellfish derived (SHELLFISH Allergy Unknown UNKNOWN Verified 04/24/25 09:05 DERIVED) Review of Systems Review of Systems: CONST: Negative for fever, body aches and chills. HENT: Negative for neck pain/stiffness, headache, congestion, sore throat, swelling. EYES: Negative for discharge/pain or vision changes. RESP: Negative for cough/hemoptysis and shortness of breath. CV: Negative chest pain, difficulty breathing, palpitations. ABD: Negative pain, nausea, vomiting. : Negative increase frequency, dysuria, blood in urine or stool. MUSC: Negative for muscle aches, edema. POS lumbar back pain SKIN: Negative rash, lesions/sores. NEURO: Negative headache, dizziness, weakness. Yes all other systems are reviewed and are negative COUNT INCLUDES THE [facility] Past Medical History Attestation statement: The following information was validated with the patient. Source: old records reviewed and nursing notes reviewed Medical History Cervical lymphadenopathy Vitamin D deficiency Obesity due to excess calories Trent's disease Surgical History Hx of appendectomy Hx of section Family History Family History Mother Hypertension Diabetes High cholesterol CVA (cerebral vascular accident) Thyroid disease Father Pneumonia Social History Social History Alcohol intake: never Patient Tobacco Use Status: Never used Tobacco Smoked in Last 30 Days: No Use of substances other than those prescribed or required for medical reasons: No Advance Directives: No Advance Directives Information Provided: Yes Physical Exam Vital Signs: Vital Signs: Last Vital Signs Temp 98.6 F 04/24/25 09:58 Pulse 67 04/24/25 09:58 Resp 16 04/24/25 09:58 BP 135/68 04/24/25 09:58 Pulse Ox 100 04/24/25 09:58 O2 Del Method Room Air 04/24/25 09:58 BMI result Body Mass Index 33.7 GENERAL APPEARANCE: ?AxOx4, generally well-appearing, no acute distress. HEENT: ?NC, AT. MMM. EOMI, clear conjunctiva, oropharynx clear. NECK: ?Supple without lymphadenopathy.? No stiffness or restricted ROM. HEART:? Normal rate and regular rhythm, normal S1/S2, no m/r/g LUNGS:? CTAB, moving air well. No crackles or wheezes are heard. ABDOMEN: ?Soft, nontender, nondistended with good bowel sounds heard. BACK: No CVAT, no obvious deformity. TTP of bilateral paraspinal muscles, tenderness over bilateral SI joints, no midline spinal tenderness, no overlying skin changes, bilateral straight leg test positive. EXTREMITIES: ?Without cyanosis, clubbing or edema. NEUROLOGICAL: ?Grossly nonfocal. Alert and oriented, moving all 4 extremities. Observed to ambulate with normal gait, however gait was slow and steady. Skin: ?Warm and dry without any rash. Medications Administered Discontinued Medications Generic Name Dose Route Start Last Admin Trade Name Freq PRN Reason Stop Dose Admin Acetaminophen 975 mg 04/24/25 09:40 04/24/25 10:12 Acetaminophen 325 Mg Tablet PO 04/24/25 09:41 975 mg ONCE ONE Administration Ketorolac Tromethamine 15 mg 04/24/25 09:40 04/24/25 10:13 Ketorolac Tromethamine 15 Mg/Ml Vial IM 04/24/25 09:41 15 mg ONCE ONE Administration Methocarbamol 1,000 mg 04/24/25 09:40 04/24/25 10:12 Methocarbamol 500 Mg Tablet PO 04/24/25 09:41 1,000 mg ONCE ONE Administration Prednisone 40 mg 04/24/25 09:40 04/24/25 10:12 Prednisone 20 Mg Tablet PO 04/24/25 09:41 40 mg ONCE ONE Administration Medical Decision Making Medical Decision Making [facility] Narrative: 45-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 lock up and get stuck?. Patient states she has a history of lower back pain, this episode feels similar. Patient reports she has been taking Tylenol, took 3 Flexeril muscle relaxer yesterday, and lidocaine patches without effect. Denies history of IV drug use, recent fall, trauma, injury. VSS, 135/68, pulse rate 67 beats per minute, afebrile with oral temp of 98.6?, O2 saturation 100% on room air. Physical exam reveals bilateral lumbar paraspinal tenderness to palpation, no midline tenderness, no overlying skin changes, bilateral straight leg test positive, ROM intact, I observed the patient ambulating in department, without ataxic gait, gait is slow and steady due to pain. Patient afebrile, no history of IV drug use-less likely SEA, patient without saddle anesthesia, no urinary/bowel incontinence-less likely cauda equina, no midline spinal tenderness, ROM intact, no recent injury/trauma/fall-less likely fracture. We will medicate with 40 mg prednisone, a 1000 mg methocarbamol, 15 mg IM ketorolac, 975 mg p.o. Tylenol. Course 12:07- patient with mild improvement of lumbar back pain after being medicated in the department. UA negative for blood, no signs of infection. I observed the patient ambulating in the department. No ataxic gait, gait is slow and steady due to pain. We will discharge for home self-care, with prescription for prednisone and Robaxin. Patient counseled on strict return precautions. Differential Diagnosis Differential Diagnoses: The differential diagnosis associated with the presentation includes SCA Cauda equina UTI Lumbar radiculopathy Admission/Observation Consideration of admission/observation: Escalation of care including admission/observation considered Lab Data [facility] Lab Attestation statement: I reviewed the patient's lab results. Labs: Lab Results 04/24/25 Range/Units 11:37 Urine Color Yellow Urine Appearance Cloudy Urine pH 5.5 (5.0-9.0) Ur Specific [place] 1.025 (1.005-1.025) Urine Protein Negative (Neg-Trace) mg/dL Urine Glucose (UA) Negative (Negative) mg/dL Urine Ketones Negative (Negative) mg/dL Urine Blood Negative (Negative) Urine Nitrite Negative (Negative) Ur Leukocyte Esterase Negative (Negative) External Record Review External record reviewed: Inpatient record, Office record and Outpatient record Chronic Conditions Patient?s care impacted by: Other (Trent's) Discharge Plan Discharge Clinical Impression: Lumbar radiculopathy Patient Disposition: Home, Self-Care Instructions: Acute Low Back Pain (ED), Lumbar Radiculopathy (ED) Additional Instructions: You were evaluated in the ED today due to lower back pain. Your physical exam revealed tenderness of the muscles along your lower back, without midline spinal tenderness. You were medicated in the department with 975 mg Tylenol, 15 mg of ketorolac injected into the arm muscle, a 1000 mg of methocarbamol which is a muscle relaxer, and 40 mg prednisone which is a steroid for inflammation. To manage your pain you will be prescribed a 4 day course of 40 mg prednisone which is a steroid for inflammation, 4 day course of methocarbamol which is a muscle relaxer. Additionally you can take 500 mg of Tylenol, 400 mg of ibuprofen every 6 hours for pain. Continue to use lidocaine patches, heating pad for pain, and rest. Do not take any other muscle relaxers while on this medication. Please follow up with your PCP to ensure improvement. Please return to the emergency department if you experience fevers over 100.4?, chills, shortness of breath, chest pain, worsening back pain, worsening pain with walking, tingling of your inner thighs, urinary/bowel incontinence, or any other new/concerning/worsening symptom. Prescriptions: New prednisone 20 mg tablet 40 mg PO DAILY 4 Days Qty: 8 0RF methocarbamol 750 mg tablet 750 mg PO BEDTIME 4 Days Qty: 4 0RF No Action lorazepam 1 mg tablet 1 mg PO ONCE PRN (Reason: anxiety) Qty: 2 0RF Rx Instructions: take 1 tablet an hour prior to MRI. Be sure to have some one drive you to and from and the medication can be sedating. diphenhydramine HCl [Benadryl] 25 mg capsule 25 mg PO TID PRN (Reason: allergic reaction) 7 Days Qty: 21 0RF prednisone 20 mg tablet 40 mg PO DAILY 5 Days Qty: 10 0RF famotidine [Pepcid] 20 mg tablet 20 mg PO BID 7 Days Qty: 14 0RF prednisone 20 mg tablet 40 mg PO DAILY 5 Days Qty: 10 0RF ketorolac 10 mg tablet 10 mg PO TID PRN (Reason: pain) 5 Days Qty: 15 0RF acetaminophen [Tylenol] 325 mg capsule 650 mg PO Q4H PRN (Reason: pain) Qty: 30 0RF ketorolac 10 mg tablet 10 mg PO TID PRN (Reason: pain) 5 Days Qty: 15 0RF cyclobenzaprine 5 mg tablet 5 mg PO Q8H PRN (Reason: pain (scale score 7-10)) 5 Days Qty: 14 0RF acetaminophen [Tylenol Extra Strength] 500 mg tablet 500 mg PO Q6H PRN (Reason: fever or pain) Qty: 14 0RF lidocaine [Lidoderm] 5 % adhesive patch,medicated 1 patch topical DAILY MDD remove after 12 hours PRN (Reason: pain) Qty: 30 0RF Rx Instructions: leave on most painful area for up to 12 hrs diazepam [Valium] 5 mg tablet 5 mg PO TID PRN (Reason: muscle spasm) Qty: 10 0RF Rx Instructions: partial fill is okay cyclobenzaprine 5 mg tablet 5 mg PO TID PRN (Reason: muscle spasm) Qty: 10 0RF lidocaine 5 % adhesive patch,medicated 1 patch topical DAILY Qty: 15 0RF Rx Instructions: leave on most painful area for up to 12 hrs cholecalciferol (vitamin D3) 50 mcg (2,000 unit) capsule 50 mcg PO DAILY 30 Days Qty: 30 11RF tizanidine 2 mg tablet 2 mg PO BEDTIME PRN (Reason: muscle spasticity) Qty: 30 0RF Rx Instructions: start with 1/2 tab as medication can be sedating Referrals: [facility] [Provider Group, Family Practice] [facility] [place] [facility] [Provider Group, Family Practice] Print Language: Pashto
[2025-04-24 09:58] VITALS: BP 135/68; PULSE 67; RESP 16; TEMP 37; O2SAT 100
--- NOTE | 2025-04-24 10:03 | PC.NURSE ---
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 A+OX4, calm, cooperative. CSMs present in bilat lower extremities. Pt denies any CP or SOB, RR even and unlabored.
--- OUTSIDE RECORDS SUMMARY | 2025-04-24 11:17 | XMS_ITS | Clinical Summary ---
Author Organization [facility] Address [address] [place] [address] Care Team Providers Care Kiln Door Builder Name Role Phone Melony Nath ROSEANN Primary Care Provider [phone] Source Comments PLEASE NOTE, if this patient is a minor, it may be UNLAWFUL to discuss sensitive information that is contained in these records (such as FAMILY PLANNING, MENTAL HEALTH or SUBSTANCE ABUSE) with the minor patient's parent or other person without the patient's specific authorization.[facility] Allergies No known active allergies Medications fluticasone (FLONASE) 50 mcg/actuation nasal sprayIndication s:Sinusitis Place 1 Blodgett into the nostril(s) once daily. 16 g 1 06/02/2013 Active ibuprofen (ADVIL,MOTRIN) 800 mg tabletIndicatio ns:Cervicalgia Take 1 Tab by mouth 3 (three) times daily as needed for pain. 100 Tab 3 11/15/2013 Active levothyroxine 50 mcg capsuleIndicati ons:Thyroid disorder Take 1 Cap by mouth every morning 30 Cap 2 06/30/2017 Active Active Problems Problem Noted Date Diagnosed Date DUB (dysfunctional uterine bleeding) 11/05/2016 Obesity (BMI 30-39.9) 02/10/2014 Anemia 12/28/2013 Vitamin D deficiency disease 12/28/2013 Thyroid nodule 12/27/2013 Overview (02/10/2014): Had u/s [place] [facility] [place] Showed: Rt lobe: Increased size 6.1x2.5x2.4cm (vol 19.2cc) Isthmus: 1cm rt hand nodule: hypoechoic with some peripheral flow Lt Lobe: nl size with 1cm hypoechoic lesion in mid lower pole (no calcific and no flow) Hypothyroidism Immunizations Immunization Administration Dates Next Due Flu, Preservative Free 07/21/2017 Moderna COVID-19 Vaccine, re d cap blue label, 12+ Primary Series 02/25/2021,01/28/2021 TDAP 07/21/2017 Family History Medical History Relation Name Comments Heart failure Father Diabetes Mother High Cholesterol Mother Hypertension Mother Stroke Mother Relation Name Status Comments Father Mother Alive Social History Tobacco Use Types Packs/Day Years Used Date Smoking Tobacco: Never Smokeless Tobacco: Current Alcohol Use Standard Drinks/Week Comments No 0 (1 standard drink = 0.6 oz pur e alcohol) Social Connections Answer Date Recorded Connectedness 0 06/08/2024 Financial Resource Strain Answer Date R ecorded Financial Resource Strain 0 2023 Stress Answer Date Recorded Stress 0 2024 Physical Activity Answer Date Recorded Physical Activity 0 2024 Food Insecurity Answer Date Recorded Food 0 06/16/2024 Transportation Needs Answer Date Record ed Transportation 0 2024 Housing Stability Answer Date Recorded Housing 0 2024 Safety and Environment Answer Date Camron rded Safety 0 2024 Utilities Answer Date Recorded Utilities 0 2024 Employment Answer Date Recorded Stress 0 06/08/2024 Comments No Sex and Gender Information Value Date Recorded Sex Assigned at Female 07/21/2017 12:55 PM PDT Legal Sex Female 11:36 AM PDT Gender Identity Female 07/21/2017 12:55 PM PDT Sexual Orientation Straight 07/21/2017 12 :55 PM PDT Last Filed Vital Signs Vital Sign Reading Time Taken Comments Blood Pressure 120/78 07/21/2017 3:08 PM EDT Pulse 80 07/21/2017 3:08 PM EDT Temperature 36.7 C (98.1 F) 07/21/2017 3:08 PM EDT Respiratory Rate 16 07/21/2017 3:08 PM EDT Oxygen Saturation - - Inhaled Oxygen Concentration - - Weight 85.3 kg (188 lb) 07/21/2017 3:08 PM EDT Height 160 cm (5' 3 ) 07/21/2017 3:08 PM EDT Body Mass Index 33.3 07/21/2017 3:08 PM EDT Plan of Treatment Health Maintenance Due Date Last Done Comments Anxiety Screening 1982 HPV Screening 1982 Pap + HPV 1982 Tobacco Cessation Counseling (#1) 1982 Tobacco Screening 1982 Relationship Safety Screening/Counseling 1997 Imm-Hepatitis B (1 of 3 - 19 + 3-dose series) 2001 Cervical Cancer Screening 2003 Pap Smear 2003 TSH Monitoring 06/26/2018 06/26/2017, 10/22, 11/15/2013 Annual Wellness (Adult): Indicated (All Coverage) 07/21/2018 07/21/2017, 11/05/2016, 11/23/2014 Hypertension Screening (#1) 07/21/2018 Diabetes Screening 06/26/2020 06/26/2017, 1 , 11/05/2016, Additional history exists Lipid Screening 11/05/2021 11/05/2016, 11/15/2013 Breast Cancer Screening (Mammogram) 2022 [id number] ( season) 2024 021, 01/28/2021 Alcohol and Drug Screen 09/21/2024 07/21/2017, 11/23 Depression Annual Screen 09/21/2024 017, 11/23/2014 (Declined) Imm-Influenza (#1) 2025 07/21/2017 Imm-DTaP/Tdap/Td (2 - Td or Tdap) 07/21/2027 017 HIV Screening Completed 11/05/2016 Hepatitis C Screening Completed 11/05/2016 Cervical Ablation/Cold-Knife Conization Discontinued Cervical Cryotherapy Discontinued Colposcopy Discontinued Endometrial Biopsy Discontinued Excision/Leep Discontinued HPV Genotyping Discontinued Vaginal Pap Discontinued Vulvoscopy Discontinued Procedures Procedure Name Priority Date/Time Associated Diagnosis Comments THYROID CASCADE PROFILE Routine 06/26/2017 2:15 PM EDT Hypothyroidism COMPREHENSIVE METABOLIC PANEL Routine 06/26/2017 2:15 PM EDT Hypothyroidism ANTIBODY HIV-1&HIV-2 SINGLE RESULT Routine 11/05/2016 3:09 PM EST Routine general medical examination at a health care facility HEPATITIS A,B,C PANEL Routine 11/05/2016 3:09 PM EST Routine general medical examination at a health care facility LIPID PANEL Routine 11/05/2016 3:09 PM EST Hypothyroidism from Last 3 Months or Most Recently Relevant to Health Maintenance Results * (ABNORMAL) THYROID CASCADE PROFILE (06/26/2017 2:15 PM EDT) TSH CASCADE 4.70(H) 0.40 - 4.00 uIU/ml [facility] Blood specimen (specimen) Blood / Unknown 06/26/2017 2:15 PM EDT 06/26/2017 2:[address] [facility] - 06/26/2017 6:07 PM EDT [facility] [address] [place] [address] PT [place] [id number] ORD# [id number] us Bang [facility] - BLOOD DRAW Final Result [facility] [address] [place] [address], * (ABNORMAL) COMPRE METAB PANEL (06/26/2017 2:15 PM EDT) GLUCOSE 88 70 - 100 mg/dL [facility] Comment:Reference range appl icable to fasting specimens only BUN 10 5 - 25 mg/dL [facility] CREAT 0.71 0.5 - 1.1 mg/dL [facility] GLOMERULAR FILTRATION RATE > 60 [facility] Comment: If patient is -Lithuanian, multiply result by 1.21 Chronic Kidney Disease: < 60 ml/min/1.73 square meters Kidney Failure: < 15 ml/min/1.73 square meters SODIUM 138 133 - 145 mmol/L [facility] POTASSIUM 4.1 3.5 - 5.5 mmol/L [facility] CHLORIDE 104 96 - 110 mmol/L [facility] CO2 27 21 - 32 mmol/L [facility] ANION GAP 7 3 - 11 [facility] CALCIUM 9.8 8.5 - 10.5 mg/dL [facility] TOTAL PROTEIN 8.4(H) 6.0 - 8.0 G/dL [facility] ALBUMIN 4.0 3.2 - 5.0 G/dL [facility] BILI, TOTAL 0.4 0.0 - 1.4 mg/dL [facility] SGOT 20 10 - 42 U/L [facility] SGPT 30 10 - 60 U/L [facility] ALK PHOS 107 42 - 121 U/L [facility] Blood specimen (specimen) Blood / Unknown 06/26/2017 2:15 PM EDT 06/26/2017 2:[address] [facility] - 06/26/2017 5:58 PM EDT [facility] [address] [place] [address] PT [place] [id number] ORD# [id number] [facility] - BLOOD DRAW Final Result [address] [address], * HEPATITIS A,B,C PANEL (11/05/2016 3:09 PM EST) HEPATITIS B SURFACE ANTIBODY NEGATIVE NEGATIVE [facility] HEPATITIS B SURFACE ANTIGEN NEGATIVE NEGATIVE [facility] HEPATITIS C VIRUS DIAGNOSTIC NEGATIVE NEGATIVE [facility] HEPATITIS A ANTIBODY TOTAL NEGATIVE NEGATIVE [facility] HEPATITIS B CORE ANTIBODY NEGATIVE NEGATIVE [facility] Blood specimen (specimen) Blood / Unknown 11/05/2016 3:09 PM EST 11/05/2016 3:[address] [facility] - 11/05/2016 7:12 PM EST [facility] [address] [place] [address] PT ID [id number] ORD# [id number] Michelle Lazo MD LAB - BLOOD DRA Fontane[facility] Edited Result - Final Performing Organization Address [facility]/ZIP Co de Phone Number [facility] [address] [place] [address], [place] [phone] * HIV-1 & HIV-2 ANTIBODIES (11/05/2016 3:09 PM EST) [facility] HIV 1 AND 2 ANTIBODY SCREEN NEGATIVE NEGATIVE [facility] Comment: This assay is a 4th generation assay allowing for earlier detection of HIV infection by detecting the presence of the HIV-1 p24 antigen as well as the traditional antibodies to HIV type 1 (including group O) and type 2. Use of a 4th generation assay is the current CDC recommendation for HIV screening. Blood specimen (specimen) Blood / Unknown 11/05/2016 3:09 PM EST 11/05/2016 3:[address] [facility] - 11/05/2016 7:41 PM EST [facility] [address] [place] [address] [place] [id number] ORD# [id number] Michelle Lazo MD LAB - BLOOD DRA Fontanez Final Result Performing Organization Address [facility]/ZIP Co de Phone Number [facility] [address] [place] [address], [place] [phone] * (ABNORMAL) LIPID PANEL (11/05/2016 3:09 PM EST) Pathologist [facility] CHOLESTEROL 207(H) 0 - 200 mg/dL [facility] TRIGLYCERIDES 242(H) 0 - 150 mg/dL [facility] HDL CHOLESTEROL 49 >40 mg/dL [facility] LDL CALCULATED 110(H) 0 - 100 mg/dL [facility] TC-HDLC RATIO 4.2 0 - 4.4 mg/dL [facility] Blood specimen (specimen) Blood / Unknown 11/05/2016 3:09 PM EST 11/05/2016 3:14 PM EST Narrative [facility] - 11/05/2016 6:34 PM EST [facility] [address] [place] [address] PT ID [id number] ORD# [id number] us Michelle Lazo MD LAB - BLOOD JANET W Final Result [facility] [address] [place] [address], [place] [phone] from Last 3 Months or Most Recently Relevant to Health Maintenance Insurance [facility] allyve PLAN Member Subscriber Plan / Payer (Ef fective 2018-Present) Name:Henna West Relation to Subscriber:Self Name:Henna West Payer ID:[id number] Group ID:Not on file Type:Medicaid Address: [facility] [address] [place] [address] Care Teams Kiln Door Builder Relationship Specialty Start Date End Date Melony Nath FNP [address] [place] [id number] PCP - General 04/04/19
[2025-04-24 11:50] LABS: Appearance Urine Cloudy; Glucose Urine UA Negative (Negative); PH 5.5 (5.0-9.0); Specific Gravity - Urine 1.025 (1.005-1.025)
[2025-04-24 12:22] VITALS: BP 125/77; PULSE 65; RESP 17; TEMP 36.2; O2SAT 97
[2025-04-24 12:33] VITALS: BP 125/77; PULSE 65; RESP 17; TEMP 36.2; O2SAT 97
== END 2025-04-24 12:35 | disposition home or self-care (01) ==
PROVIDERS: Emergency Provider Emergency Medicine Emergency Medical Services
DX: M54.50 Low back pain, unspecified (principal); M54.16 Radiculopathy, lumbar region; E06.3 Autoimmune thyroiditis
CPT/HCPCS: 81003; 96372; 99284; J1885